=== PATIENT | female | born 1955 | race Caucasian/White ===

== ENCOUNTER → 2020-05-20 14:33 | Outpatient (CLI) | payer OTHER, SELFPAY ==
[2020-05-20 16:02] LABS: BUN Creatinine Ratio 38.8 (6-22); Blood Urea Nitrogen 26 mg/dL (7-17); Estimated Glomerular Filt Rate > 60.0 mL/min (>60)
== END ==
PROVIDERS: PCP Physician Assistant; Referring Provider Specialist; Visit Provider Specialist
DX: K57.32 Diverticulitis of large intestine without perforation or abscess without bleeding (principal); R10.32 Left lower quadrant pain
CPT/HCPCS: 36415; 82565; 84520

== ENCOUNTER → 2020-05-23 10:02 | Outpatient (CLI) | payer OTHER, SELFPAY ==
--- NOTE | 2020-05-23 11:23 | DI.CT.S_ITS ---
PROCEDURE: CT ABDOMEN PELVIS W CON INDICATIONS: Left lower quadrant pain. History of diverticulitis. TECHNIQUE: After the administration of oral and intravenous contrast, 5 mm thick sections acquired from the diaphragms to the symphysis. 5 mm thick coronal and sagittal reformats were performed. For radiation dose reduction, the following was used: automated exposure control, adjustment of mA and/or kV according to patient size. COMPARISON: [facility], CT, ABDOMEN/PELVIS WITH CONTRAST, 12/20/2010, 10:18. [facility], CT, ABDOMEN/PELVIS WITH CONTRAST, 04/19/2009, 20:33. FINDINGS: Image quality: Excellent. ABDOMEN: Lung bases: Lung bases are clear. Heart size is normal. Small pericardial effusion. There is a large hiatal hernia. Solid organs: Low-density nodules in liver are most likely hepatic cysts. Liver is normal in size and enhancement. Gallbladder is no. Biliary system is non-dilated. Pancreas enhances normally. Spleen is normal in size and enhancement. No adrenal nodules. Kidneys are normal in size and enhancement, without hydronephrosis. Peritoneum and bowel: Stomach, small bowel, and colon loops are normal in caliber and wall thickness. There are scattered colonic diverticula. There is subtle pericolonic stranding and colonic wall thickening in sigmoid colon, suspicious for mild diverticulitis. Appendix is normal. No free fluid or air. Nodes and vessels: No retroperitoneal or mesenteric adenopathy. Aorta and inferior vena cava are normal in caliber. Miscellaneous: No ventral hernias. PELVIS: Genitourinary: Myomatous uterus with large uterine fibroids measuring up to a cm. Bladder wall thickness is normal. Miscellaneous: No inguinal hernias or adenopathy. Bones: No suspicious bony lesions. No vertebral body compression fractures. IMPRESSION: 1. Diverticulosis. Mild diverticulitis may be present in the sigmoid colon. No findings to suggest diverticular perforation. No abscess. 2. Large hiatal hernia. 3. Myomatous uterus with large uterine fibroids measuring up to 8 cm. Dictated by: Keith Simmons M.D. on 05/23/2020 at 11:54 Approved by: Keith Simmons M.D. on 05/23/2020 at 12:03
== END ==
PROVIDERS: PCP Physician Assistant; Referring Provider Specialist; Visit Provider Specialist
DX: R10.32 Left lower quadrant pain (principal); K57.32 Diverticulitis of large intestine without perforation or abscess without bleeding; K44.9 Diaphragmatic hernia without obstruction or gangrene; I31.3 Pericardial effusion (noninflammatory); D25.9 Leiomyoma of uterus, unspecified
CPT/HCPCS: 74177; Q9967

== ENCOUNTER 2020-06-28 06:13 | Inpatient (IN) | payer OTHER, SELFPAY ==
[2020-06-28] VITALS (12 sets, daily range): BP systolic 84–117; BP diastolic 50–78; PULSE 74–91; RESP 12–20; TEMP 36.1–37.1; O2SAT 88–96; BMI 29.5
--- NOTE | 2020-06-28 | PATH_ITS ---
[facility] Accession Number: [id number] . 01 Material submitted: . PART A: uterus - UTERUS AND BILATERAL FALLOPIAN TUBES PART B: colon - SIGMOID COLON . 01 Clinical history: . IP . 02 Diagnosis: A. Uterus and Bilateral Fallopian Tubes, Supracervical Hysterectomy and Bilateral Salpingectomy (Weight 272 grams): Basalis endometrium with features of cystic atrophy; negative for glandular hyperplasia, cytologic atypia, or malignancy. Myometrium with an intramural leiomyoma (8.5 cm in greatest dimension); negative for cytologic atypia or malignancy. Uterine serosa with no significant histomorphologic abnormality. Braselton fallopian tube with benign paratubal cysts (1-2 mm in greatest dimension) and with adhesions to the adjacent ovary. Adjacent ovary with endosalpingiosis and with a small focus of Leydig cell hyperplasia (less than 1 mm). Longer fallopian tube with no significant histomorphologic abnormality. . B. Sigmoid Colon, Resection (7.5 cm in Length): Segment of colon with diverticulosis. Resections margins are viable and without abnormality. Negative for dysplasia or malignancy. [facility] 07/01/2020 1453 Local . 02 Electronically signed: . Nuzhat Page MD, Pathologist NPI- [id number] . 01 Gross description: . A. Received in formalin and labeled uterus and bilateral fallopian tubes and consists of a 272-gram supracervically resected uterus measuring 10.0 cm from superior fundus to lower uterine segment by 11.5 cm from cornu to cornu by 8.5 cm from anterior to posterior. The serosa is hernandez-pink and smooth. The specimen is bivalved to reveals a 3.0 x 1.5 cm endometrial cavity with a pink-red glistening hemorrhagic endometrium measuring 0.3 cm in thickness. The myometrium is hernandez-pink and trabeculated measuring 2.1 cm in thickness. There is an 8.5 x 5.8 x 5.8 cm hernandez-white leiomyoma with no areas of hemorrhage, necrosis or cystic degeneration. There are two detached fallopian tubes measuring 2.5 in length by 0.8 cm in diameter and 3.0 cm in length by 0.8 cm in diameter. The serosa is pink-purple and smooth with multiple paratubal cysts ranging from 0.1 to 0.2 cm. Sectioning reveals a hernandez-pink mucosa and a stellate lumen measuring 0.3 cm in diameter. Deputy Director sections are submitted. . A1-A2: lower uterine segment. A3-A6: food service sales representatives uterus. A7-A10: food service sales representatives leiomyoma. A11: shorter fallopian tube, central cross-sections and bisected fimbria. A12: longer fallopian tube, central cross-sections and bisected fimbria. . B. Received in formalin and labeled sigmoid colon and consists of a 7.5 cm in length by 3.0 cm in diameter unoriented portion of colon with two stapled margins. The serosa is hernandez-pink and smooth and there is a moderate amount of attached adipose tissue. Opening reveals a hernandez-pink mucosa with normal mucosal folds. Multiple intact diverticula are identified throughout the specimen, located 0.3 cm from the nearest stapled margin. The wall thickness measures up to 0.6 cm. No lymph nodes are identified within the attached adipose tissue. Deputy Director sections are submitted. . B1-B2: stapled margins (blue, black), food service sales representatives perpendicular sections. B3-B4: food service sales representatives diverticula. (EA:[id number]) /MRV 06/29/[address] [place] [address] . 02 Pathologist provided ICD-10: D25.9, R10.2, K57.92 . 02 CPT . 012393, [id number] Performed at: 01 [facility] [address] [place] [address], [place], [place] [id number] MD Ihsan Linn MD Phone: [phone] Performed at: [address] [facility] [address] [place], [place] [id number] MD Yisel Lei MD Phone: [phone]
[2020-06-28 06:56] LABS: COVID19 -Nasal RAPID Negative (Negative)
[2020-06-28] MEDS: ACETAMINOPHEN 325 MG TABLET 975 MG PO (07:19)
[2020-06-28] MEDS: GABAPENTIN 300 MG CAPSULE PO ×2 (07:20→20:57)
[2020-06-28] MEDS: SCOPOLAMINE 1 PATCH TOP (07:20)
[2020-06-28] MEDS: LACTATED RINGERS 1,000 ML 100 ML IV ×4 (07:21→21:32)
[2020-06-28] MEDS: metroNIDAZOLE 500 MG/100 ML PIGGYBACK 100 MG IV (07:26)
--- NOTE | 2020-06-28 07:35 | PM.PREOP ---
Pre-operative Note COVID-19 COVID-19 status: Negative Result date/Date tested (Pos, Neg/Pending): 06/28/20 Interval Note History & Physical reviewed/Exam performed by Physician: Yes Changes to H&P: No H&P completed within 30 days and has changed as indicated here:: 06/17/20
--- NOTE | 2020-06-28 07:37 | PM.PREOP ---
Pre-operative Note COVID-19 COVID-19 status: Negative Result date/Date tested (Pos, Neg/Pending): 06/28/20 Interval Note History & Physical reviewed/Exam performed by Physician: Yes Changes to H&P: No
[2020-06-28] MEDS: CEFTRIAXONE 1 GM/50 ML FROZ.PIGGY IV (08:20)
--- NOTE | 2020-06-28 08:45 | SUR.OPER ---
Lithotomy on padded OR bed. [place] Pad Positioner under torso. Head on gel donut, arms padded and tucked at sides. Legs secured in padded yellow fins stirrups.
--- NOTE | 2020-06-28 08:54 | PM.AN.REGBLK ---
Regional Block Pre-procedure Procedure: Continuous Epidural for Post-operative Pain Management Attending OB provider: Jamir Faye PMH/ROS narrative: Myomectomy for fibroids, sigmoid colectomy for diverticulitis. Surgeon request epidural for post-op pain control. hypothyroid hemochromatosis requiring less frequent phlebotomies (Q4mo) obesity, BMI 30 Mets>4, no recent URI, no tobacco use, EtOH 2/month, no drug use. PSH/Anesthesia history narrative: A/P repair tummy tuck gustavo h/o PONV Exam narrative: MP2, normal dentition and range of motion regular rate and rhythm of heart sounds lungs clear to auscultation bilaterally ASA Class: II Labs: COVID negative 06/28 Medications: Current Medications Generic Name Dose Route Start Last Admin Trade Name Freq PRN Reason Stop Dose Admin Acetaminophen 650 mg 06/28/20 08:44 Acetaminophen 325 Mg Tablet PO Q4HR PRN headache/mild pain Fentanyl 0 mcg 06/28/20 08:37 Fentanyl 100 Mcg/2 Ml Inj IV Q5MIN PRN Pain, Severe (7-10) Haloperidol 1 mg 06/28/20 08:37 Haloperidol 5 Mg/Ml Vial IV Q15MIN PRN Nausea Lactated Ringer's 1,000 mls @ 100 mls/hr 06/28/20 06:00 06/28/20 07:21 Lactated Ringers IV 100 mls/hr CONT OCHOA Administration Lactated Ringer's 1,000 mls @ 42 mls/hr 06/27/20 12:45 06/28/20 07:26 Lactated Ringers IV Not Given CONT OCHOA Lactated Ringer's 1,000 mls @ 120 mls/hr 06/28/20 08:45 Lactated Ringers IV CONT OCHOA Lactated Ringer's 1,000 mls @ 100 mls/hr 06/28/20 08:45 Lactated Ringers IV CONT OCHOA FENT 2MCG/ML BUPIV 0.125% EPI 200 mcg in 100 mls @ 6 mls/hr 06/28/20 08:45 Fentanyl/Bupiv/Ns 2mcg/Ml - 0.125% EPIDURAL CONT OCHOA Lorazepam 0.25 mg 06/28/20 08:37 Lorazepam 2 Mg/Ml Inj IV NOW PRN Anxiety Ondansetron HCl 4 mg 06/28/20 08:37 Ondansetron 4 Mg/2 Ml Inj IV NOW PRN Nausea And Vomiting Ondansetron HCl 4 mg 06/28/20 08:44 Ondansetron 4 Mg/2 Ml Inj IV Q6HR PRN Nausea And Vomiting Oxycodone HCl 5 mg 06/28/20 08:44 Oxycodone Ir 5 Mg Tablet PO Q4HR PRN Pain, Moderate (4-6) Allergies: Allergies Allergy/AdvReac Type Severity Reaction Status Date / Time levofloxacin [From LEVAQUIN] Allergy Severe ANXIETY Verified 06/28/20 07:08 ATTACK, FEELS LIKE I'M HAVING A HEART ATTACK Penicillins [PENICILLINS] Allergy Severe Hives Verified 06/28/20 07:08 Procedure Insertion date: 06/28/20 Insertion time: 08:03 Prep/Local: 1% lidocaine (Chloroprep prep) Interspace: T10-11 Patient position: sitting Needle: 18 gauge Hustead Loss of resistance with: saline HOMA at (cm): 4 Catheter placed at SKIN (cm): 9 Catheter in SPACE (cm): 5 Insertion: No CSF, No Blood, No Paresthesia with insertion, No Paresthesia with injection and No Test dose reaction Initial Medications TEST DOSE time: 08:02 TEST DOSE: 1.5% lidocaine with epinephrine 1:200k (mL): 5 Infusion INFUSION: 0.125% bupivacaine and with fentanyl 2 mcg/mL Initial rate (mL/hr): 6 Post-procedure Anesthesia time START: 07:49 Anesthesia time END: 08:03 Post-procedure Anesthesia Assessment: Yes CV function: HR/BP stable, Yes Resp function: RR/sat/airway adequate, Yes Nausea & vomiting absent, Yes Mental status appropriate and No Anesthesia complications
[2020-06-28] MEDS: BUPIVACAINE 0.5% (PF) VIAL 30 ML INJ (09:09)
--- NOTE | 2020-06-28 12:24 | P.OP_ITS ---
Operative Date/Time/Diagnoses Date of procedure: 06/28/20 Time of procedure: 12:24 Pre-op diagnosis: Chronic intermittent pain from diverticulitis. Post-op diagnosis: same Procedure & Clinicians Procedure: Laparoscopic sigmoid resection with primary anastomosis. Same procedure as scheduled: Yes Indications: Chronic pain from intermittent diverticulitis. Disrupting patient's life. She desired removal of the segment of her colon. Surgeon: Jamir Faye Carbide Die Maker: Frida Kohli Anesthesia Type: General Operative Notes Findings: Scarring in the proximal sigmoid. Mild thickening of the wall. Specimen(s): other (Sigmoid colon (portion of)) Applied: catheter Estimated Blood Loss (mL): 20 (For this portion of the procedure.) Blood products transfused: none Procedure in detail: This procedure was done in combination with Dr. Kohli who performed a supracervical hysterectomy. She has dictated that portion of the procedure. There may be some overlap in our dictation. Patient was placed supine on the operating room table underwent general endotracheal anesthesia. An epidural catheter had been placed prior for postoperative pain control. She was prepped and draped in the usual fashion. Curvilinear incision was made at the upper edge of her abdominoplasty incision near her umbilicus. Was carried under direct vision into the peritoneal cavity. Stay sutures of 0 Vicryl were placed in the fascia. And a son cannula was inserted. The abdomen is insufflated. Ultimately 3 additional 5 mm ports were placed. One was in the left lower abdomen at about the level of the umbilicus. One opposite on the right side. And 1 in the midline in a midline scar. This was inferior between the umbilicus and the pubis. After examining the abdomen and determining where the area of inflammation had been in the sigmoid colon we began by mobilizing the descending colon dividing the attachments of the colon to the left abdominal wall. This was taken to the level near the splenic flexure. The dissection was carried inferiorly as well until I reached the ligaments of the uterus attached to the left abdominal wall. We were not in the region of the ureter at this juncture the operation. The patient's sigmoid colon was quite lengthy. We then shifted gears and Dr. Kohli proceeded to perform a supracervical hysterectomy. This was done to relieve the visualization of the sigmoid in the pelvis which was obscured by this large fibroid. Once the uterus had been disconnected from the cervix it was placed in the right lower quadrant for evacuation later. Turning our attention back to the sigmoid colon I mobilized adequately such that it would easily come up to the abdominal wall in the region of her transverse abdominoplasty incision across her lower abdomen. I then made a transverse incision overlying the rectus carried down to the rectus which was opened in his anterior fascia. The muscle was retracted laterally and medially and the peritoneum opened posteriorly. A small Joesph was placed in the incision to protect the wound and the colon was easily brought out to include the area that appeared to have some scarring and on palpation was mildly thickened. The colon was transected proximal and well distal to this. A segment about 10-12 inches was removed. A 2 layer anastomosis then was created with seromuscular silks in the outer layer and running 3-0 Vicryl Cami type full-thickness closure as an inner layer. The anastomosis was passed painted and felt to be patent. This portion of the colon was returned back into the abdomen and a proctoscope inserted. Fluid was filled and the colon lumen closed off above the incision and air insufflated. There was no evidence of an air leak. The anastomosis appeared fine. Fluid was suctioned from the pelvis. We then attempted to retrieve the uterus which was challenging. We therefore had to regroup and closed the anterior fascia with a running 0 Vicryl. We were ultimately able to identify the uterus which had moved into the right upper quadrant under the transverse colon omentum. It was moved down into the pelvis. The suture line of 0 Vicryl that had been placed in the anterior fascia of the wound in the left lower quadrant was removed. The uterus was removed through an Dalia device to prevent any contamination of the abdominal wall. The [place] was then removed. The peritoneum was closed with a running 2-0 Vicryl suture. The wounds were i rrigated. The anterior rectus fascia was closed a running number 0 PDS suture. The skin in all areas was closed with 4-0 Vicryl suture. Interrupted Vicryl sutures were used on the 5 mm port sites.. The skin at the left lower quadrant incision was closed a running 4-0 Vicryl subcuticular stitch after placing a few 3-0 Vicryl in the subcu fat. The skin at the scar near the umbilicus had additional 6 0 nylon interrupted sutures placed to bring the skin edges nicely together. The scar that was present there made approximation of the skin edges difficult. Steri-Strips and Mastisol were used to close the other wounds. Dressings were applied and the patient was awakened extubated and taken the recovery area in good condition. Complications: none Post-operative Condition: stable Disposition: PACU Plan for aftercare: Floor care for her epidural.
[2020-06-28] MEDS: FENT 2MCG/ML BUPIV 0.125% EPI 200 MCG/100 ML PLAST..BAG 6 MCG EPIDURAL ×2 (13:53→22:55)
[2020-06-28] MEDS: LACTATED RINGERS 1,000 ML 120 ML IV (13:53)
--- NOTE | 2020-06-28 15:30 | PC.NURSE ---
Addendum entered by Cate Boothe R.N. 06/28/20 15:33: LAP BANDAGES X 4 TO ABD CDI AND TRANSVERSE UMBILICAL DRESSING ALSO CDI Original Note: RECIEVED PT TO ROOM [address] AND EFFECTIVE - DENIES PAIN AND ABLE TO WIGGLE BILAT TOES. ROOM AIR SPO2 96%, HOBBS PATENT- DAUGHTER AT BEDSIDE AND BOTH SHE AND PT ORIENTED TO ROOM - LR @ 120CC/H
--- NOTE | 2020-06-28 18:58 | PM.GYNOP.1 ---
Operative Date/Time/Diagnoses Date of procedure: 06/28/20 Time of procedure: 12:00 Pre-op diagnosis: Pelvic pain Enlarged fibroid uterus Post-op diagnosis: same Procedure & Clinicians Procedure: Procedures Operation Date: 06/28/20 07:45 Actual Procedures Side Surgeon p Laparoscopic Hysterectomy W/Bilateral Salpingectomy Frida Kohli MD p Laparoscopic Sigmoid Colectomy with primary anastomosis Jamir Faye MD Indications: Pelvic pain Fibroid uterus Surgeon: Frida Kohli Nutrition Associate: Jamir Faye Anesthesia Type: General and Epidural Operative Notes Findings: Eleven week size fibroid uterus Normal tubes and ovaries Normal liver and gallbladder Normal appendix Closure Type: primary Specimen(s): left tube, right tube and uterus Applied: catheter (To continuous drainage) Estimated blood loss (mL): 75 Blood products transfused: none Procedure in detail: This procedure was done in conjunction with Dr. Faye. The incisions and entry into the peritoneal cavity was done by Dr. Faye. After the patient was prepped and draped. A bivalve speculum was placed into the vagina. A single-tooth tenaculum was placed on the anterior lip of the cervix. The cervical os was sequentially dilated until the Zumi uterine manipulator could pass easily into the endometrial cavity. Attention was then turned to the abdomen and the incisions are dictated by Dr. Faye. The right tube was grasped with an atraumatic grasper. Using the Thunderbeat, the mesosalpinx was cauterized and cut all the way down to the cornua of the uterus. The uterus was grasped at the cornua on the right side. The round ligament was cauterized and cut. The broad ligament was cauterized and cut down to the level of the uterine arteries. The bladder flap was created using the Thunderbeat assisted across. The uterine arteries on the right side were extensively cauterized with the Thunderbeat. All of this was repeated on the patient's left side. The remainder of the bladder flap was created and the bladder was taken down off the lower uterine segment and cervix. The Zumi uterine manipulator was removed from the uterus. The Cassia loop was placed approximately 2 cm above the uterus sacral ligaments. The uterus was amputated from the cervix. There was some bleeding noted from the right side of the cervix. This was cauterized with the Thunderbeat for hemostasis. The uterus was placed into the right lower quadrant. After the completion of the partial colectomy, the uterus was brought up to the Joesph with the cervical side up. The uterus was morcellated until the diameter could fit through the Joesph. The tubes and uterus were handed off for specimen. The Joesph was removed from the peritoneal cavity. The closure of the incisions is dictated by Dr. Faye. The graduate teaching assistant during this case provided entry into the abdomen. He provided retraction of the uterus while the pedicles were being cauterized and cut. He provided retraction while the bladder flap was being created. He provided retraction while the Cassia loop was amputating the uterus from the cervix. He assisted in removal of the uterus and closure of the abdomen. Complications: none Post-operative Condition: stable Disposition: PACU Plan for aftercare: To acute care after recovery
[2020-06-28] MEDS: OXYCODONE IR 5 MG TABLET PO (20:57)
[2020-06-29 04:47] VITALS: BP 105/62; PULSE 86; RESP 18; TEMP 36.3; O2SAT 95
[2020-06-29 05:22] LABS: Add Manual Diff / Slide Review NO; Basophils Absolute Auto 0 /uL (0-100); Basophils Percent Auto 0.2 % (0-2); Eosinophils Absolute Auto 0 /uL (0-450); Hematocrit 36.4 % (36-46); Hemoglobin 12.3 g/dL (12.0-16.0); Lymphocytes Absolute Auto 800 /uL (1100-4500); Lymphocytes Percent Auto 6.5 % (25-40); Mean Corpuscular HGB Conc 33.7 % (30-36); Mean Corpuscular Hemoglobin 31.5 PG (26-34); Mean Corpuscular Volume 93.7 fL (80-100); Monocytes Absolute Auto 700 /uL (0-900); Neutrophils Absolute Auto 10500 /uL (1500-7000); Neutrophils Percent Auto 87.3 % (50-75); Platelet Count 244 X10^3/uL (150-400); Red Blood Cell Count 3.88 X10^6/uL (4.0-5.2); Red Cell Distribution Width 12.9 % (11.6-14.8)
[2020-06-29 05:27] LABS: Alanine Aminotransferase 23 IU/L (<35); Albumin 3.3 g/dL (3.5-5.0); Albumin Globulin Ratio 1.4 (1.0-2.8); Alkaline Phosphatase 49 U/L (38-126); Aspartate Aminotransferase 35 IU/L (14-36); BUN Creatinine Ratio 10.9 (6-22); Bilirubin Total 0.3 mg/dL (0.2-1.3); Blood Urea Nitrogen 6 mg/dL (7-17); Calcium 8.6 mg/dL (8.4-10.2); Carbon Dioxide 24 mmol/L (22-32); Chloride 108 mmol/L (98-107); Estimated Glomerular Filt Rate > 60.0 mL/min (>60); Globulin 2.4 g/dL (1.7-4.1); Glucose 121 mg/dL (80-110); HEMOLYSIS < 15 (0-50); Magnesium 2.1 mg/dL (1.6-2.3); Potassium 4.3 mmol/L (3.4-5.1); Sodium 138 mmol/L (137-145); Total Protein 5.7 g/dL (6.3-8.2)
[2020-06-29] MEDS: LACTATED RINGERS 1,000 ML 100 ML IV (08:00)
[2020-06-29 08:46] VITALS: BP 108/62; PULSE 66; RESP 16; TEMP 36.6; O2SAT 98
--- NOTE | 2020-06-29 09:18 | PM.PN.1 ---
Subjective Subjective Date Patient Seen: 06/29/20 Time Patient Seen: 09:19 Interval history: Patient is a 64 year-old woman POD#1 from laprascopic hysterectomy, bilateral salpingectomy and sigmoid colectomy with primary anastamosis. Epidural day #2 for post-op pain control. Patient relates excellent pain control: 0/10. She endorses some itching, but says that it is tolerable. No nausea. She has not tried getting out of bed or walking and was under the impression that she couldn't with the urinary catheter and the epidural in. Exam Vital Signs (past 8 hours): - 06/29/20 04:47 06/29/20 08:46 Temperature 97.4 F L 97.9 F Pulse Rate 86 66 Respiratory Rate 18 16 Blood Pressure 105/62 108/62 Pulse Oximetry 95 98 Oxygen Delivery Method Room Air Oxygen Flow Rate 0 Narrative Exam Narrative: Patient is alert, awake and oriented, sitting up in bed and enjoying breakfast. She has good strength with foot flexion and hip flexion. Catheter site is clean dry and intact. Epidural is running at 6mL/hr and she endorses one demand bolus last night. Objective Labs Result Diagrams: 06/29/20 04:45 06/29/20 04:45 Labs: Laboratory Results - last 24 hr 06/28/20 06/29/20 06/29/20 17:06 04:45 04:45 WBC 12.0 H RBC 3.88 L Hgb 12.3 Hct 36.4 MCV 93.7 MCH 31.5 MCHC 33.7 RDW 12.9 Plt Count 244 Neut % (Auto) 87.3 H Lymph % (Auto) 6.[address] [place] % (Auto) 6.0 Eos % (Auto) 0.0 L Baso % (Auto) 0.2 Neut # (Auto) 58678 H Lymph # (Auto) [address] [place] [place] # (Auto) 700 Eos # (Auto) 0 Baso # (Auto) 0 Sodium 138 Potassium 4.3 Chloride 108 H Carbon Dioxide 24 BUN 6 L Creatinine 0.55 Estimated GFR > 60.0 BUN/Creatinine Ratio 10.9 Glucose 121 H Calcium 8.6 Magnesium 2.1 Total Bilirubin 0.3 AST 35 ALT 23 Alkaline Phosphatase 49 Total Protein 5.7 L Albumin 3.3 L Globulin 2.4 Albumin/Globulin Ratio 1.4 Nasal Screen MRSA (PCR) Negative for mrsa [facility] Medical History (Updated 06/27/20 @ 08:10 by Wandy Shahid RN) Acquired hypothyroidism Burning mouth syndrome Cold intolerance Diverticulitis large intestine Elective surgery Hemochromatosis Hiatal hernia Postmenopausal Rheumatoid disease Uterine fibroid Vaginal bleeding Surgical History (Updated 06/20/20 @ 11:32 by Frida Kohli MD) H/O abdominoplasty History of bilateral tubal ligation History of repair of hiatal hernia History of tonsillectomy and adenoidectomy Status post wisdom tooth extraction Family History Father Hypertension Stroke Grandmother Diabetes mellitus Stroke Cancer Brother Cancer Social History marital status: household members: spouse Smoking Status: Never smoker alcohol intake: current Assessment & Plan Assessment & Plan narrative: Patient is POD#1 and epidural day #2. Plan to continue epidural until primary team plans discharge or desires removal of urinary catheter. Will then stop the infusion for six hours, ensuring adequate pain control with oral medications on which she will be at home. Catheter will be discontinued ensuring 12 hours from last lovenox injection. Encouraged ambulation: if patient feels unsteady with epidural at current infusion rate, can decrease rate to improve subjective strength. Patient tolerating PO. Continue scheduled tylenol. Encouraged keeping the scopolamine patch on until we know that she is tolerating PO pain medications or 72hours after its placement. Will add PRN diphenhydramine for itching. Silvia LO Anesthesiologist
[2020-06-29] MEDS: THYROID, PORK 60 MG TABLET PO (09:27)
[2020-06-29] MEDS: ENOXAPARIN 40 MG/0.4 ML SYRINGE SUBCUT (09:28)
[2020-06-29] MEDS: GABAPENTIN 300 MG CAPSULE PO ×2 (09:29→20:28)
--- NOTE | 2020-06-29 11:02 | PC.NURSE ---
PT WITH CONTROLLED PAIN WITH CURRENT EPIDURAL USE- LUNGS CLEAR AND NOT REQUIRING O2, ROOM AIR SPO2 98%. LR continues to infuse and iniguez is patent PT WAS INCONT MODERATE AMOUNT OF LIQUID BROWN STOOL. AWAITING PHYSICAL THERAPY TO ASSESS BUT SHE WAS ABLE TO DANGLE AND THEN FEW STEPS TO [facility] AND THEN TRANSFER WITH ASSIST TO CHAIR- TOLERATING CLEAR LIQUIDS WELL DENIES NAUSEA
[2020-06-29 12:21] VITALS: BP 116/63; PULSE 63; RESP 17; TEMP 36.4; O2SAT 100
[2020-06-29] MEDS: ACETAMINOPHEN 325 MG TABLET 650 MG PO ×2 (12:57→17:15)
[2020-06-29] MEDS: OXYCODONE IR 5 MG TABLET PO ×2 (15:21→20:28)
--- NOTE | 2020-06-29 15:38 | PC.NURSE ---
Addendum entered by Silvia Mckoy R.N. 06/29/20 19:21: Dr Faye at bedside, wants to make sure that during the 9am Lovenox shot, that pt is being educated on how to self administer this medication as she will be going home using this. Addendum entered by Silvia Mckoy R.N. 06/29/20 19:02: Dr. Kohli at bedside, discussed replacing epidural with patient for pain control, decided to add IV toradol and dilaudid for additional pain control. Galvin catheter removed due to patient ability to ambulate to the bathroom with FWW. Pt states that pain is being better controlled with the Tylenol and Toradol administered in addition to PO Percolone 5mg. Pt has had 2 loose stool so far during this shift, now able to ambulate to bathroom and has the sensation of when she needs to void and have a BM. Bed low and locked, call light within reach, daughter remains at bedside for additional assistance, will continue to monitor. Original Note: Evening shift note: During change of shift, pt sitting up in chair, this nurse was changing the epidural bag and was going to disconnect the line from patient to prime line and noted that the epidural dressing and line was no longer intact in patients back(although the catheter tip was intact). At this time I had the dayshift nurse Cate Ferreira confirm that the epidural was displaced, and waste the new bag of Fent/Bupiv/Epi with me. Dr. Rivas anesthesiology was notified and stated that it was OK to leave the epidural out, however if the patient wanted it replaced this nurse would need to contact the anesthesiologist classification case manager. Administered PO pain medication per emar, will continue to monitor.
--- NOTE | 2020-06-29 15:45 | CM.DANOTE ---
DCP Note: Patient is 64 Female with [employer]. Patient admitted in hospital post op laprascoptic hysterectomy, bilateral salpingectomy and sigmoid colectomy. Per RN, patient's epidural dislodged and RN is to inform MD. Patient's pain management is being monitored. CATERINA met with patient and daughter at bedside. Patient presents as A/Ox4. Patient reports that she has three daughters and a , patient reports that her three daughters are taking turns attending to her care giving needs. Patient states that her epidural came out and that she just received pain medication, patient reports no current pain. Patient reports that she drives but plans not to drive for a while post op. Plan: follow for patient d/c needs. CATERINA Truong Discharge Planning/Care Management CM Discharge Assessment Start: 06/29/20 15:44 Freq: Status: Active Protocol: Document 06/29/20 15:44 LN (Rec: 06/29/20 15:45 LN [id number]) Discharge Planning Assessment Assigned Electrical Equipment Assembler CATERINA Grubbs Advance Directives? No History Provided By Patient,Family Member,Medical Record Has Patient been admitted in last 30 No days? Prior Living Arrangements House Household Members spouse Type of transporation used prior to Drives own vehicle admit Comment patient plans to not drive upon d/c until fully recovered post op. Discharge Plan Home Please Provide Date Initial DC 06/29/20 Assessment Was Performed Pre-Anesthesia Assessment Start: 06/27/20 07:55 Freq: Status: Complete Protocol: Document 06/27/20 07:56 ELOY (Rec: 06/27/20 08:11 Natacha [id number]) Pre-Anesthesia Assessment Patient Information Reviewed Via Chart Review Seen Specialist in Last 12 Months Yes Specialist Seen General surgeon,Oncologist Height 160.02 cm Anesthesia Review Requested No Technical Operations Specialist No alcohol intake current Smoking Status Never smoker Marital Status Lives With spouse
[2020-06-29 16:35] VITALS: BP 121/73; PULSE 58; RESP 16; TEMP 36.4; O2SAT 99
[2020-06-29] MEDS: KETOROLAC 30 MG/ML VIAL IV (18:01)
--- NOTE | 2020-06-29 18:05 | PM.PNPO.1 ---
Subjective Subjective Date Patient Seen: 06/29/20 Time Patient Seen: 18:05 Interval history: Patient is a 64-year-old postop day # 1 status post laparoscopic supracervical hysterectomy and laparoscopic partial right colectomy. Patient had an epidural for pain management until recently when the catheter came out. She has had liquid bowel movements. She sometimes does not have the urge but just leaks stool. Patient is advanced to a full liquid diet. She has been out of the bed to a chair. Exam Vital Signs (past 8 hours): - 06/29/20 12:21 06/29/20 16:35 Temperature 97.5 F L 97.6 F Pulse Rate 63 58 L Respiratory Rate 17 16 Blood Pressure 116/63 121/73 Pulse Oximetry 100 99 Oxygen Delivery Method Room Air Oxygen Flow Rate 0 Narrative Exam Narrative: Generally: Patient is sitting up in bed, no acute distress Lungs: Clear to auscultation bilaterally Cardiovascular: Regular rate and rhythm Abdomen: Soft, good bowel sounds in all 4 quadrants. Incisions: Clean dry and intact with bandages Extremities: SCDs in place Objective Labs Result Diagrams: 06/29/20 04:45 06/29/20 04:45 Labs: Laboratory Results - last 24 hr 06/28/20 06/29/20 06/29/20 17:06 04:45 04:45 WBC 12.0 H RBC 3.88 L Hgb 12.3 Hct 36.4 MCV 93.7 MCH 31.5 MCHC 33.7 RDW 12.9 Plt Count 244 Neut % (Auto) 87.3 H Lymph % (Auto) 6.5 L [place] % (Auto) 6.0 Eos % (Auto) 0.0 L Baso % (Auto) 0.2 Neut # (Auto) 51447 H Lymph # (Auto) 800 L [place] # (Auto) 700 Eos # (Auto) 0 Baso # (Auto) 0 Sodium 138 Potassium 4.3 Chloride 108 H Carbon Dioxide 24 BUN 6 L Creatinine 0.55 Estimated GFR > 60.0 BUN/Creatinine Ratio 10.9 Glucose 121 H Calcium 8.6 Magnesium 2.1 Total Bilirubin 0.3 AST 35 ALT 23 Alkaline Phosphatase 49 Total Protein 5.7 L Albumin 3.3 L Globulin 2.4 Albumin/Globulin Ratio 1.4 Nasal Screen MRSA (PCR) Negative for mrsa [facility] Medical History (Updated 06/27/20 @ 08:10 by Wandy Shahid RN) Acquired hypothyroidism Burning mouth syndrome Cold intolerance Diverticulitis large intestine Elective surgery Hemochromatosis Hiatal hernia Postmenopausal Rheumatoid disease Uterine fibroid Vaginal bleeding Surgical History (Updated 06/20/20 @ 11:32 by Frida Kohli MD) H/O abdominoplasty History of bilateral tubal ligation History of repair of hiatal hernia History of tonsillectomy and adenoidectomy Status post wisdom tooth extraction Family History Father Hypertension Stroke Grandmother Diabetes mellitus Stroke Cancer Brother Cancer Social History marital status: household members: spouse Smoking Status: Never smoker alcohol intake: current Assessment & Plan Post-op Postoperative Procedures: Procedures Operation Date: 06/28/20 07:45 Actual Procedures Side Surgeon p Laparoscopic Hysterectomy W/Bilateral Salpingectomy Frida Kohli MD p Laparoscopic Sigmoid Colectomy with primary anastomosis Jamir Faye MD Postoperative day: 1 Postoperative status: doing well and marginal pain control Postoperative plan: see orders and advance diet Postoperative plan narrative: IV Toradol, IV Dilaudid Time Spent With Patient Time with patient: 15-24 minutes
--- NOTE | 2020-06-29 19:15 | PM.PNPO.1 ---
Subjective Subjective Date Patient Seen: 06/29/20 Time Patient Seen: 19:15 Interval history: Patient feels well. Epidural came out. Pain controlled with iv and po meds. Tolerating a full liquid diet. Has had multiple bowel movements and is passing flatus. Galvin just came out. Exam Vital Signs (past 8 hours): - 06/29/20 12:21 06/29/20 16:35 Temperature 97.5 F L 97.6 F Pulse Rate 63 58 L Respiratory Rate 17 16 Blood Pressure 116/63 121/73 Pulse Oximetry 100 99 Oxygen Delivery Method Room Air Oxygen Flow Rate 0 Narrative Exam Narrative: Lungs clear. Excellent effort. Heart RRR w/o M or G. Abdomen soft. Hyperactive bowel sounds. Dressings dry and intact. Objective Labs Result Diagrams: 06/29/20 04:45 06/29/20 04:45 Labs: Laboratory Results - last 24 hr 06/28/20 06/29/20 06/29/20 17:06 04:45 04:45 WBC 12.0 H RBC 3.88 L Hgb 12.3 Hct 36.4 MCV 93.7 MCH 31.5 MCHC 33.7 RDW 12.9 Plt Count 244 Neut % (Auto) 87.3 H Lymph % (Auto) 6.5 L [place] % (Auto) 6.0 Eos % (Auto) 0.0 L Baso % (Auto) 0.2 Neut # (Auto) 61547 H Lymph # (Auto) 800 L [place] # (Auto) 700 Eos # (Auto) 0 Baso # (Auto) 0 Sodium 138 Potassium 4.3 Chloride 108 H Carbon Dioxide 24 BUN 6 L Creatinine 0.55 Estimated GFR > 60.0 BUN/Creatinine Ratio 10.9 Glucose 121 H Calcium 8.6 Magnesium 2.1 Total Bilirubin 0.3 AST 35 ALT 23 Alkaline Phosphatase 49 Total Protein 5.7 L Albumin 3.3 L Globulin 2.4 Albumin/Globulin Ratio 1.4 Nasal Screen MRSA (PCR) Negative for mrsa [facility] Medical History Acquired hypothyroidism Burning mouth syndrome Cold intolerance Diverticulitis large intestine Elective surgery Hemochromatosis Hiatal hernia Postmenopausal Rheumatoid disease Uterine fibroid Vaginal bleeding Surgical History H/O abdominoplasty History of bilateral tubal ligation History of repair of hiatal hernia History of tonsillectomy and adenoidectomy Status post wisdom tooth extraction Family History Father Hypertension Stroke Grandmother Diabetes mellitus Stroke Cancer Brother Cancer Social History marital status: household members: spouse Smoking Status: Never smoker alcohol intake: current Assessment & Plan Post-op Postoperative Procedures: Procedures Operation Date: 06/28/20 07:45 Actual Procedures Side Surgeon p Laparoscopic Hysterectomy W/Bilateral Salpingectomy Frida Kohli MD p Laparoscopic Sigmoid Colectomy with primary anastomosis Jamir Faye MD Postoperative day: 1 Postoperative status narrative: doing remarkably well . Postoperative plan narrative: advance diet to full liquids. check wounds in am. Encouraged to ambulate. Continue DVT prophylaxis.
[2020-06-29 20:10] VITALS: BP 132/75; PULSE 63; RESP 16; TEMP 36.3; O2SAT 97
[2020-06-29] MEDS: diphenhydrAMINE 25 MG TABLET PO (20:28)
[2020-06-30 00:44] VITALS: BP 107/58; PULSE 65; RESP 16; TEMP 36.2; O2SAT 96
[2020-06-30] MEDS: ACETAMINOPHEN 325 MG TABLET 650 MG PO ×5 (00:45→23:57)
[2020-06-30] MEDS: KETOROLAC 30 MG/ML VIAL IV ×2 (00:45→06:17)
[2020-06-30 06:07] VITALS: BP 122/63; PULSE 66; RESP 17; TEMP 35.9; O2SAT 95
[2020-06-30] MEDS: THYROID, PORK 60 MG TABLET PO (07:58)
[2020-06-30 08:00] VITALS: BP 125/73; PULSE 56; RESP 15; TEMP 36.2; O2SAT 97
--- NOTE | 2020-06-30 11:33 | DIET.PN ---
Dietary Progress Note Assessment: 64y F recovering from planned abdominal surgery followed by [facility] fernandezop for ERAS protocol. Pt had 12in sigmoid colon resected along with uterus for uterine fibroids. Pt is gluten free, weight stable, and had no food issues prior to planned procedure besides frequent diverticular flares. Pt doing well, passing BMs, ambulating in halls, no N/V. Pt has been receiving ONS to support surgical site healing bid since assigned clear diet post-surgery. HT: 160cm WT: 75.7kg BMI: 29.6 Labs: WBC 12 H Nutrition Diagnosis: altered GI function r/t sigmoid colon resection aeb pt underwent planned resection for recurrent diverticulitis c 12 colon removed, pt requiring altered diet for 1-4w to support healing. Interventions: 1. Provided handout and instruction on low fiber diet x1-2w to support healing of intestines. Pt alerted BM may be more constipating because of low fiber diet and possible d/c pain meds. Encouraged adequate fluid and soft protein intake c frequent gentle walking. 2. Provided handout and instruction on high fiber diet to start increasing fiber after a week or two depending on how healing is going and abd sx. Educated pt on importance of high fiber diet to tone remaining healthy intestinal tissues. Pts questions answered. Diet Order: full liquid --> low fiber --> high fiber Monitoring/Evaluations: available to answer pt questions as needed
[2020-06-30 12:00] VITALS: BP 122/72; PULSE 56; RESP 17; TEMP 36.2; O2SAT 99
[2020-06-30] MEDS: ENOXAPARIN 40 MG/0.4 ML SYRINGE SUBCUT (12:07)
[2020-06-30] MEDS: GABAPENTIN 300 MG CAPSULE PO ×2 (12:57→20:19)
[2020-06-30] MEDS: OXYCODONE IR 5 MG TABLET PO (12:58)
[2020-06-30] MEDS: LACTOBACILLUS ACIDOPHILUS TABLET 1 EACH PO (14:54)
[2020-06-30 16:01] VITALS: BP 133/79; PULSE 57; RESP 16; TEMP 36; O2SAT 99
--- NOTE | 2020-06-30 17:21 | PM.PNPO.1 ---
Subjective Subjective Date Patient Seen: 06/30/20 Time Patient Seen: 09:40 Interval history: Patient feeling well today. Pain controlled. Continues to pass gas. Ate all of her full liquid breakfast. No real complaints. Shower earlier. Exam Vital Signs (past 8 hours): - 06/30/20 12:00 06/30/20 16:01 Temperature 97.1 F L 96.8 F L Pulse Rate 56 L 57 L Respiratory Rate 17 16 Blood Pressure 122/72 133/79 Pulse Oximetry 99 99 Oxygen Delivery Method Room Air Oxygen Flow Rate 0 Narrative Exam Narrative: Good respiratory effort. Her wounds look fine. No cellulitis. Mild abdominal distention. Objective Labs Result Diagrams: 06/29/20 04:45 06/29/20 04:45 [facility] Medical History Acquired hypothyroidism Burning mouth syndrome Cold intolerance Diverticulitis large intestine Elective surgery Hemochromatosis Hiatal hernia Postmenopausal Rheumatoid disease Uterine fibroid Vaginal bleeding Surgical History H/O abdominoplasty History of bilateral tubal ligation History of repair of hiatal hernia History of tonsillectomy and adenoidectomy Status post wisdom tooth extraction Family History Father Hypertension Stroke Grandmother Diabetes mellitus Stroke Cancer Brother Cancer Social History marital status: household members: spouse Smoking Status: Never smoker alcohol intake: current Assessment & Plan Post-op Postoperative Procedures: Procedures Operation Date: 06/28/20 07:45 Actual Procedures Side Surgeon p Laparoscopic Hysterectomy W/Bilateral Salpingectomy Frida Kohli MD p Laparoscopic Sigmoid Colectomy with primary anastomosis Jamir Faye MD Postoperative day: 2 Postoperative status: doing well Postoperative plan narrative: Mobilize further. Advance diet. Possible discharge tomorrow depending on how she is doing.
--- NOTE | 2020-06-30 17:35 | P.PN_ITS ---
Subjective Subjective Date Patient Seen: 06/30/20 Time Patient Seen: 17:35 Interval history: Patient is a 64-year-old postop day # 2 status post laparoscopic supracervical hysterectomy and laparoscopic partial right colectomy. Her pain is well controlled. Her Galvin catheter is out and she is voiding spontaneously. She is tolerating a soft diet. No nausea or vomiting. She is ambulating independently. Exam Vital Signs (past 8 hours): - 06/30/20 12:00 06/30/20 16:01 Temperature 97.1 F L 96.8 F L Pulse Rate 56 L 57 L Respiratory Rate 17 16 Blood Pressure 122/72 133/79 Pulse Oximetry 99 99 Oxygen Delivery Method Room Air Oxygen Flow Rate 0 Narrative Exam Narrative: Generally: Patient is sitting up in chair, no acute distress Lungs: Clear to auscultation bilaterally Cardiovascular: Regular rate and rhythm Abdomen: Soft, good bowel sounds. Incisions: Clean dry and intact with bandages Extremities: Negative Homans Objective Labs Result Diagrams: 06/29/20 04:45 06/29/20 04:45 [facility] Medical History Acquired hypothyroidism Burning mouth syndrome Cold intolerance Diverticulitis large intestine Elective surgery Hemochromatosis Hiatal hernia Postmenopausal Rheumatoid disease Uterine fibroid Vaginal bleeding Surgical History H/O abdominoplasty History of bilateral tubal ligation History of repair of hiatal hernia History of tonsillectomy and adenoidectomy Status post wisdom tooth extraction Family History Father Hypertension Stroke Grandmother Diabetes mellitus Stroke Cancer Brother Cancer Social History marital status: household members: spouse Smoking Status: Never smoker alcohol intake: current Assessment & Plan Post-op Postoperative Procedures: Procedures Operation Date: 06/28/20 07:45 Actual Procedures Side Surgeon p Laparoscopic Hysterectomy W/Bilateral Salpingectomy Frida Kohli MD p Laparoscopic Sigmoid Colectomy with primary anastomosis Jamir Faye MD Postoperative day: 2 Postoperative status: doing well Postoperative plan: routine post-op care and advance diet Postoperative plan narrative: Anticipate discharge 07/01 or 4/10 Advanced diet per General surgery Time Spent With Patient Time with patient: 15-24 minutes
[2020-06-30 19:57] VITALS: BP 109/70; PULSE 66; RESP 17; TEMP 36.9; O2SAT 98
[2020-07-01 00:20] VITALS: BP 110/62; PULSE 60; RESP 16; TEMP 36.3; O2SAT 97
[2020-07-01 04:51] VITALS: BP 112/64; PULSE 56; RESP 18; TEMP 36.2; O2SAT 97
[2020-07-01 04:57] LABS: Add Manual Diff / Slide Review NO; Basophils Absolute Auto 100 /uL (0-100); Basophils Percent Auto 0.8 % (0-2); Eosinophils Absolute Auto 400 /uL (0-450); Hematocrit 35.5 % (36-46); Hemoglobin 12.2 g/dL (12.0-16.0); Lymphocytes Absolute Auto 2500 /uL (1100-4500); Lymphocytes Percent Auto 32.4 % (25-40); Mean Corpuscular HGB Conc 34.2 % (30-36); Mean Corpuscular Hemoglobin 31.7 PG (26-34); Mean Corpuscular Volume 92.7 fL (80-100); Monocytes Absolute Auto 600 /uL (0-900); Monocytes Percent Auto 7.3 % (3-14); Neutrophils Absolute Auto 4200 /uL (1500-7000); Neutrophils Percent Auto 54.5 % (50-75); Platelet Count 240 X10^3/uL (150-400); Red Blood Cell Count 3.83 X10^6/uL (4.0-5.2); Red Cell Distribution Width 12.9 % (11.6-14.8); White Blood Cell Count 7.8 X10^3/uL (4.5-11.0)
[2020-07-01 05:04] LABS: Alanine Aminotransferase 33 IU/L (<35); Albumin 3.1 g/dL (3.5-5.0); Albumin Globulin Ratio 1.3 (1.0-2.8); Alkaline Phosphatase 59 U/L (38-126); Aspartate Aminotransferase 57 IU/L (14-36); BUN Creatinine Ratio 17.2 (6-22); Bilirubin Total 0.2 mg/dL (0.2-1.3); Blood Urea Nitrogen 11 mg/dL (7-17); Calcium 8.4 mg/dL (8.4-10.2); Carbon Dioxide 28 mmol/L (22-32); Chloride 108 mmol/L (98-107); Estimated Glomerular Filt Rate > 60.0 mL/min (>60); Globulin 2.3 g/dL (1.7-4.1); Glucose 80 mg/dL (80-110); HEMOLYSIS < 15 (0-50); Magnesium 1.9 mg/dL (1.6-2.3); Potassium 3.8 mmol/L (3.4-5.1); Sodium 138 mmol/L (137-145); Total Protein 5.4 g/dL (6.3-8.2)
[2020-07-01] MEDS: OXYCODONE IR 5 MG TABLET PO ×2 (05:32→10:15)
[2020-07-01] MEDS: ACETAMINOPHEN 325 MG TABLET 650 MG PO ×2 (05:32→11:51)
[2020-07-01] MEDS: THYROID, PORK 60 MG TABLET PO (05:33)
[2020-07-01 08:00] VITALS: BP 122/72; PULSE 55; RESP 16; TEMP 36.2; O2SAT 97
[2020-07-01] MEDS: GABAPENTIN 300 MG CAPSULE PO (09:09)
[2020-07-01] MEDS: ENOXAPARIN 40 MG/0.4 ML SYRINGE SUBCUT (09:10)
[2020-07-01] MEDS: LACTOBACILLUS ACIDOPHILUS TABLET 1 EACH PO (09:12)
--- NOTE | 2020-07-01 10:17 | PC.NURSE ---
Addendum entered by Jinny Alexander R.N. 07/01/20 13:00: Scheduled f/u appointment with Sx, Dr. Faye out of office next week, appointment scheduled with Dr. Wright, spoke with patient, patient verbalized understanding. Addendum entered by Jinny Alexander R.N. 07/01/20 12:48: Patient given discharge instructions regarding f/u appointments, medications, pain control, s/s of infection. Daughter bedside and both verbalized understanding. No IV access. Medication retrieved from pharmacy, patient discharged via wheelchair accompanied by aide Original Note: Patient A/O x 4, resting in bed. Abdomen soft, steri-strips intact, moderate bruising noted around umbilicus. Patient reports pain 4/10. Voiding in restroom, reports liquid stool, passing flatus. Walking in the halls with daughter, tolerating diet no complaints of N/V. Patient on RA, 97-99%, denies SOB. Patient HR high 50's, patient denies dizziness or lightheadedness. Patient refusing SCD's tolerating Lovenox. . Call light in reach.
[2020-07-01 12:00] VITALS: BP 130/71; PULSE 67; RESP 17; TEMP 36.6; O2SAT 98
--- NOTE | 2020-07-01 12:14 | PM.DS.1 ---
History of Present Illness History of Present Illness Date Patient Seen: 07/01/20 Time Patient Seen: 12:14 Chief complaint: IP Narrative: Patient is a 64-year-old postop day # 3 status post laparoscopic right partial colectomy and supracervical hysterectomy/bilateral salpingectomy. Patient is tolerating a diet. She is passing flatus and having liquid stool. No nausea or vomiting. No incisional issues. She is voiding without the catheter. She has ambulated without assistance. Discharge Providers Provider Date of admission: 06/28/20 06:13 Discharge Date: 07/01/20 Primary care physician: Shyanne De Leon PA-C Consults: 06/28/20 13:09 Consult to Discharge Planning Routine Comment: Discharge provider: Frida Kohli MD Summary Hospital Course Discharge Diagnosis: Diverticulitis Pelvic pain Fibroid uterus Status post laparoscopic partial right colectomy and supracervical hysterectomy with bilateral salpingectomy Hospital Course: Patient is a 64-year-old who presented on June 28, 2020 for a scheduled laparoscopic right partial colectomy and supracervical hysterectomy with bilateral salpingectomy. She underwent these procedures without complication. She had an epidural placed for pain management. On postop day # 1, the epidural catheter came out, she was switched to oral pain medication. Her Galvin catheter was removed on postop day # 1 and she has been able to void spontaneously. She was advanced to full liquids later in the day on postop day # 1. On postop day # 2 she was advanced to a soft diet. She has had liquid stool. She is passing flatus. She is discharged home on postop day # 3. Status at Discharge Cognitive/behavioral status at discharge: oriented Functional status at discharge: independent ambulation Overall status at discharge: patient is progressing back to baseline Time Spent with Patient Time spent: Less than 30 minutes Exam Vital Signs (past 8 hours): - 07/01/20 04:51 07/01/20 08:00 Temperature 97.1 F L 97.1 F L Pulse Rate 56 L 55 L Respiratory Rate 18 16 Blood Pressure 112/64 122/72 Pulse Oximetry 97 97 Oxygen Delivery Method Room Air Oxygen Flow Rate 0 Narrative Exam Narrative: Generally: Patient is sitting up in bed, no acute distress Lungs: Clear to auscultation bilaterally Cardiovascular: Regular rate and rhythm Abdomen: Soft and flat. Good bowel sounds in all 4 quadrants. Incisions: Clean dry and intact with Steri-Strips Extremities: Negative Homans Objective Labs Result Diagrams: 07/01/20 04:32 07/01/20 04:32 Labs: Laboratory Results - last 24 hr 07/01/20 07/01/20 04:32 04:32 WBC 7.8 RBC 3.83 L Hgb 12.2 Hct 35.5 L MCV 92.7 MCH 31.7 MCHC 34.2 RDW 12.9 Plt Count 240 Neut % (Auto) 54.5 D Lymph % (Auto) 32.4 D [place] % (Auto) 7.3 Eos % (Auto) 5.0 H Baso % (Auto) 0.8 Neut # (Auto) 4200 Lymph # (Auto) 2500 [place] # (Auto) 600 Eos # (Auto) 400 Baso # (Auto) 100 Sodium 138 Potassium 3.8 Chloride 108 H Carbon Dioxide 28 BUN 11 Creatinine 0.64 Estimated GFR > 60.0 BUN/Creatinine Ratio 17.2 Glucose 80 Calcium 8.4 Magnesium 1.9 Total Bilirubin 0.2 AST 57 H ALT 33 Alkaline Phosphatase 59 Total Protein 5.4 L Albumin 3.1 L Globulin 2.3 Albumin/Globulin Ratio 1.3 PFSH Medical History Acquired hypothyroidism Burning mouth syndrome Cold intolerance Diverticulitis large intestine Elective surgery Hemochromatosis Hiatal hernia Postmenopausal Rheumatoid disease Uterine fibroid Vaginal bleeding Surgical History H/O abdominoplasty History of bilateral tubal ligation History of repair of hiatal hernia History of tonsillectomy and adenoidectomy Status post wisdom tooth extraction Family History Father Hypertension Stroke Grandmother Diabetes mellitus Stroke Cancer Brother Cancer Social History marital status: household members: spouse Smoking Status: Never smoker alcohol intake: current Discharge Assessment & Plan Assessment and Plan Assessment: Postop day # 3 status post laparoscopic partial right colectomy, laparoscopic supracervical hysterectomy and bilateral salpingectomy Patient doing very well Plan of Treatment: Discharge to home Follow-up next for suture removal with Dr. Faye Follow-up in [address] Kohli Discharge medications include oxycodone, ondansetron, and Lovenox Patient to call with fever, chills, redness or drainage around the incisions, bleeding vaginally more than spotting to light, worsening abdominal pain, or nausea and vomiting. Discharge Plan Discharge Plan Patient Disposition: Home Provider Discharge Comment: Ibuprofen 600 mg every 6 hours Tylenol 650 mg every 6 hours Call with fever, chills, redness or drainage around the incisions, bleeding vaginally more than spotting to light, worsening abdominal pain, nausea or vomiting. Discharge orders & Medications Prescriptions: New enoxaparin [Lovenox] 40 mg/0.4 mL syringe 40 mg SUBCUT DAILY Qty: 4 RF: 0 oxycodone 5 mg tablet 5 mg PO Q4H PRN (Reason: pain) Qty: 30 RF: 0 ondansetron 4 mg tablet,disintegrating 4 mg PO Q6H PRN (Reason: nausea and vomiting) Qty: 20 RF: 0 Continued Nature-Throid 97.5 MG tablet 97.5 mg QDAY Qty: 0 RF: 0 oxycodone 5 mg tablet 5 mg PO Q4H PRN (Reason: pain) Qty: 10 RF: 0 ondansetron 4 mg tablet,disintegrating 4 mg PO Q8H PRN (Reason: nausea and vomiting) Qty: 10 RF: 0 alprazolam 0.5 mg Tablet 0.5 mg PO TID PRN (Reason: Anxiety) RF: 0 Discontinued erythromycin 500 mg tablet See Rx Instructions PO TID Qty: 6 RF: 0 neomycin 500 mg tablet 1 g PO TID Qty: 12 RF: 0 Cbd Oil 1 dose topical PRN PRN (Reason: Pain (Scale Score 1-3)) RF: 0 Follow up/Referrals: Shyanne De Leon PA-C [Primary Care Provider] - Frida Kohli MD [Physician] - 2 Weeks Jamir Faye MD [Physician] - 1 Week (Stitch removal) Diet/Activity/Treatments Diet: Regular Activity: No heavy lifting Skin/Wound/Dressing Care Report to your healthcare provider any signs of infection, such as:: chills, fever, increased pain, unusual drainage and unusual redness Dressing: Leave Steri-Strips in place until they fall off Visit Report/Discharge Packet Instructions: DI for Colectomy, DI for Laparoscopy, Hysterectomy -- Laparoscopic Surgery, DI for Prescription Opioid Use, [facility]: Wound Care Stand Alone Forms: Surgery Discharge Discharge Data Primary Care Provider: Shyanne De Leon
--- NOTE | 2020-07-01 15:17 | CM.DPNOTE ---
DC Note Home today, according to RN no needs from this [employer]NA[employer]. Home w/close outpatient f/u recommended. JW
== END 2020-07-01 13:04 | disposition home or self-care (01) | DRG 742 ==
LOC: AC 07:46 → ICU 10:00
PROVIDERS: Specialist; Admitting Provider Obstetrics & Gynecology; PCP Physician Assistant; Referring Provider Physician Assistant; Visit Provider Obstetrics & Gynecology
PROC: 0WJJ0ZZ Inspection of Pelvic Cavity, Open Approach (ICD-10-PCS; CPT 49000; principal; 2020-06-28 07:45)
PROC: 0DTE0ZZ Resection of Large Intestine, Open Approach (ICD-10-PCS; 2020-06-28 07:45)
DX: D25.9 Leiomyoma of uterus, unspecified (principal); K57.32 Diverticulitis of large intestine without perforation or abscess without bleeding; E03.9 Hypothyroidism, unspecified; E66.9 Obesity, unspecified; Z68.30 Body mass index [BMI] 30.0-30.9, adult; Z20.822 Contact with and (suspected) exposure to COVID-19
CPT/HCPCS: 36415; 36592; 80053; 82962; 83735; 85025; 87635; 87797; C9803; J0330; J1100; J1650; J1885; J2250; J2405; J2704

== ENCOUNTER 2021-04-29 17:22 | Emergency (ER) | payer OTHER, SELFPAY ==
[2020-06-28 13:28] VITALS: BMI 29.5
[2021-04-29 17:33] VITALS: BP 161/105; PULSE 95; RESP 18; TEMP 36.6; O2SAT 96; BMI 29.2
[2021-04-29 17:54] LABS: COVID19 -Nasal RAPID Negative (Negative)
[2021-04-29 17:57] LABS: Add Manual Diff / Slide Review NO; Basophils Absolute Auto 100 /uL (0-100); Basophils Percent Auto 0.9 % (0-2); Eosinophils Absolute Auto 200 /uL (0-450); Eosinophils Percent Auto 2.3 % (2-4); Hematocrit 38.4 % (36-46); Hemoglobin 12.8 g/dL (12.0-16.0); Lymphocytes Absolute Auto 2100 /uL (1100-4500); Lymphocytes Percent Auto 29.9 % (25-40); Mean Corpuscular HGB Conc 33.4 % (30-36); Mean Corpuscular Hemoglobin 29.7 PG (26-34); Mean Corpuscular Volume 88.9 fL (80-100); Monocytes Absolute Auto 600 /uL (0-900); Monocytes Percent Auto 8.1 % (3-14); Neutrophils Absolute Auto 4100 /uL (1500-7000); Neutrophils Percent Auto 58.8 % (50-75); Platelet Count 382 X10^3/uL (150-400); Red Blood Cell Count 4.32 X10^6/uL (4.0-5.2); White Blood Cell Count 6.9 X10^3/uL (4.5-11.0)
--- NOTE | 2021-04-29 18:02 | ED_ITS ---
HPI - Nausea/Vomiting/Diarrhea <Raffaele Woodward PA-C - Last Filed: 04/29/21 19:21> General Chief complaint: Nausea/Vomiting/Diarrhea Stated complaint: vomiting/chills body aches Time Seen by Provider: 04/29/21 17:26 Source: patient and family Mode of arrival: Ambulatory History of Present Illness HPI Narrative: Patient is a 65-year-old female presenting to the emergency department today for vomiting. Patient states that she began to experience dizziness, shaking, and generalized fatigue on 04/25/2021. She states that the next day she developed a fever and nonbloody diarrhea with associated bilateral lower abdominal pain. She states that she felt that her symptoms are improving, however she states that she began to experience episodes nonbloody nonbilious emesis today. Of note, patient states she does have history of diverticulitis for which she has had surgery dating back to May of 2020. She denies fever, chest pain, cough, shortness of breath, constipation, dysuria, hematuria, hematochezia, h ematemesis, or any other concerning symptoms. No further concerns were voiced at this time. Related Data Home Medications Medication Instructions Recorded Confirmed thyroid (pork) 97.5 mg tablet 97.5 mg QDAY #0 04/04/17 11/01/20 (Nature-Throid) alprazolam 0.5 mg tablet 0.5 mg PO TID PRN 03/10/19 11/01/20 estradiol valerate 11/01/20 progesterone 50 mg/mL 50 mg IM DAILY 11/01/20 11/01/20 intramuscular oil testosterone 1 packet TRANSDERMAL QAM 11/01/20 11/01/20 Previous Rx's Medication Instructions Recorded metoclopramide HCl 10 mg tablet 10 mg PO Q6H PRN #30 tab 04/29/21 (Reglan) ondansetron 4 mg disintegrating 4 mg PO Q6H PRN #30 tab 04/29/21 tablet Allergies Allergy/AdvReac Type Severity Reaction Status Date / Time levofloxacin [From LEVAQUIN] Allergy Severe ANXIETY Verified 04/29/21 17:38 ATTACK, FEELS LIKE I'M HAVING A HEART ATTACK Penicillins [PENICILLINS] Allergy Severe Hives Verified 04/29/21 17:38 Review of Systems <Raffaele Woodward PA-C - Last Filed: 04/29/21 19:21> Constitutional Constitutional: Denies chills, Reports fatigue, Reports fever(s), Denies frequent falls, Denies lethargy and Denies weakness Eyes Eyes: Denies loss of vision ENT Ears, Nose, Mouth, and Throat: Reports dizziness and Denies neck pain Cardiovascular Cardiovascular: Denies chest pain, Denies irregular heart rhythm, Denies lightheadedness, Denies palpitations, Denies dyspnea, Denies dyspnea on exertion and Denies orthopnea Respiratory Respiratory: Denies cough, Denies dyspnea, Denies dyspnea on exertion and Denies wheezing Gastrointestinal Gastrointestinal: Reports abdominal pain, Denies change in bowel habits, Reports diarrhea, Reports nausea and Reports vomiting Genitourinary Genitourinary: Denies hematuria, Denies flank pain, Denies urinary incontinence and Denies urinary urgency Musculoskeletal Musculoskeletal: Denies back pain, Denies muscle weakness, Denies neck pain, Denies numbness and Denies tingling Integumentary/Breasts Skin/Breast: Denies pruritus, Denies erythema, Denies rash and Denies wounds Neurologic Neurologic: Denies behavioral changes, Denies confusion, Reports dizziness, Denies frequent falls, Denies loss of vision, Denies numbness, Denies tingling and Denies weakness Psychiatric Psychiatric: Denies behavioral changes and Denies confusion Endocrine Endocrine: Reports fatigue and Denies palpitations Allergic/Immunologic Allergic/Immunologic: Denies wheezing Patient History <Raffaele Woodward PA-C - Last Filed: 04/29/21 19:21> Medical History Acquired hypothyroidism Burning mouth syndrome Cold intolerance Diverticulitis large intestine Elective surgery Hemochromatosis Hiatal hernia Postmenopausal Rheumatoid disease Uterine fibroid Vaginal bleeding Surgical History H/O abdominoplasty History of bilateral tubal ligation History of repair of hiatal hernia History of tonsillectomy and adenoidectomy Status post wisdom tooth extraction Family History Father Hypertension Stroke Grandmother Diabetes mellitus Stroke Cancer Brother Cancer Social History marital status: household members: spouse Smoking Status: Never smoker alcohol intake: current Smoking Status: Never smoker alcohol intake frequency: a few times a week Substance Use Type: does not use and other Exam <Raffaele Woodward PA-C - Last Filed: 04/29/21 19:21> Narrative Exam Narrative: GENERAL: 65 year old patient appears stated age. Well-developed patient, in no acute distress. HEAD: Atraumatic. Normocephalic. EYES: Pupils equal round and reactive. Extraocular motions intact. No scleral icterus. No injection or drainage. ENT: Nose without bleeding, purulent drainage. Throat without erythema, tonsillar hypertrophy or exudate. Airway patent. NECK: Trachea midline. Non tender CARDIOVASCULAR: Regular rate and rhythm without murmurs, gallops, or rubs. RESPIRATORY: Clear to auscultation. Breath sounds equal bilaterally. No wheezes, rales, or rhonchi. GASTROINTESTINAL: Abdomen soft, nondistended. Tenderness to palpation appreciated throughout the left upper quadrant, left lower quadrant, right lower quadrant. No masses appreciated. Previous abdominal surgical scars noted. EXTREMITIES: No edema or joint tenderness. BACK: Nontender without deformity or crepitance. No flank tenderness. NEURO: AOx3. SKIN: No rash or erythema of visible areas Initial Vital Signs Initial Vital Signs: Vital Signs Temperature 97.8 F 04/29/21 17:33 Pulse Rate 95 H 04/29/21 17:33 Respiratory Rate 18 04/29/21 17:33 Blood Pressure 161/105 H 04/29/21 17:33 Pulse Oximetry 96 04/29/21 17:33 <Rayne Cooley DO - Last Filed: 04/29/21 23:35> Initial Vital Signs Initial Vital Signs: Vital Signs Temperature 97.8 F 04/29/21 17:33 Pulse Rate 95 H 04/29/21 17:33 Respiratory Rate 18 04/29/21 17:33 Blood Pressure 161/105 H 04/29/21 17:33 Pulse Oximetry 96 04/29/21 17:33 Course <Raffaele Woodward PA-C - Last Filed: 04/29/21 19:21> Course Course Narrative: CBC, CMP, lipase, urinalysis, troponin, EKG, COVID-19 test performed. IV Zofran and bolus normal saline administered. Orders Ordered: ED Orders 04/29/21 17:40 CBC Auto Diff [Complete Blood Count AUTO DIFF] Stat CMP [Comprehensive Metabolic Panel] Stat COVID19 -Nasal swab/Pre-Proc Stat Lipase Stat Troponin & CK Cardiac Panel Stat 04/29/21 17:49 EKG-12 Lead Stat 04/29/21 18:55 Urine Microscopic Stat Discontinued Medications Sodium Chloride (Normal Saline 0.9%) 1,000 mls @ 1,000 mls/hr IV BOLUS ONE Stop: 04/29/21 18:56 Last Infusion: 04/29/21 19:24 Dose: 0 mls/hr Documented by: Admin: 04/29/21 18:03 Dose: 1,000 mls/hr Documented by: CHAITANYA Ondansetron HCl (Ondansetron 4 Mg/2 Ml Inj) 4 mg IV NOW ONE Stop: 04/29/21 17:58 Last Admin: 04/29/21 18:03 Dose: 4 mg Documented by: CHAITANYA Vital Signs Vital signs: Vital Signs - 8 hr 04/29/21 17:33 04/29/21 19:34 Temperature 97.8 F Pulse Rate 95 H 69 Respiratory Rate 18 Blood Pressure 161/105 H 117/68 Pulse Oximetry 96 98 <Rayne Cooley DO - Last Filed: 04/29/21 23:35> Orders Ordered: ED Orders 04/29/21 17:40 CBC Auto Diff [Complete Blood Count AUTO DIFF] Stat CMP [Comprehensive Metabolic Panel] Stat COVID19 -Nasal swab/Pre-Proc Stat Lipase Stat Troponin & CK Cardiac Panel Stat 04/29/21 17:49 EKG-12 Lead Stat 04/29/21 18:55 Urine Microscopic Stat Discontinued Medications Sodium Chloride (Normal Saline 0.9%) 1,000 mls @ 1,000 mls/hr IV BOLUS ONE Stop: 04/29/21 18:56 Last Infusion: 04/29/21 19:24 Dose: 0 mls/hr Documented by: Admin: 04/29/21 18:03 Dose: 1,000 mls/hr Documented by: CHAITANYA Ondansetron HCl (Ondansetron 4 Mg/2 Ml Inj) 4 mg IV NOW ONE Stop: 04/29/21 17:58 Last Admin: 04/29/21 18:03 Dose: 4 mg Documented by: CHAITANYA Vital Signs Vital signs: Vital Signs - 8 hr 04/29/21 17:33 04/29/21 19:34 Temperature 97.8 F Pulse Rate 95 H 69 Respiratory Rate 18 Blood Pressure 161/105 H 117/68 Pulse Oximetry 96 98 MDM - Nausea/Vomiting/Diarrhea <Raffaele Woodward PA-C - Last Filed: 04/29/21 19:21> Lab Data Result diagrams: 04/29/21 17:40 04/29/21 17:40 Labs: Lab Results 04/29/21 04/29/21 04/29/21 Range/Units 17:40 17:40 17:40 WBC 6.9 (4.5-11.0) X10^3/uL RBC 4.32 (4.0-5.2) X10^6/uL Hgb 12.8 (12.0-16.0) g/dL Hct 38.4 (36-46) % MCV 88.9 (80-100) fL MCH 29.7 (26-34) PG MCHC 33.4 (30-36) % RDW 14.0 (11.6-14.8) % Plt Count 382 (150-400) X10^3/uL Neut % (Auto) 58.8 (50-75) % Lymph % (Auto) 29.9 (25-40) % Miner % (Auto) 8.1 (3-14) % Eos % (Auto) 2.3 (2-4) % Baso % (Auto) 0.9 (0-2) % Neut # (Auto) 4100 (1032-0565) /uL Lymph # (Auto) 2100 (4231-3094) /uL Miner # (Auto) 600 (0-900) /uL Eos # (Auto) 200 (0-450) /uL Baso # (Auto) 100 (0-100) /uL Sodium 138 (137-145) mmol/L Potassium 4.1 (3.4-5.1) mmol/L Chloride 105 (98-107) mmol/L Carbon Dioxide 25 (22-32) mmol/L BUN 21 H (7-17) mg/dL Creatinine 0.60 (0.52-1.04) mg/dL Estimated GFR > 60.0 (>60) mL/min BUN/Creatinine Ratio 35.0 H (6-22) Glucose 90 (80-110) mg/dL Calcium 9.4 (8.4-10.2) mg/dL Total Bilirubin 0.3 (0.2-1.3) mg/dL AST 26 (14-36) IU/L ALT 20 (<35) IU/L Alkaline Phosphatase 95 (38-126) U/L Total Creatine Kinase (30-135) U/L CK-MB (CK-2) CK-MB (CK-2) Rel Index Troponin I (0.01-0.034) ng/mL Total Protein 7.7 (6.3-8.2) g/dL Albumin 4.5 (3.5-5.0) g/dL Globulin 3.2 (1.7-4.1) g/dL Albumin/Globulin Ratio 1.4 (1.0-2.8) Lipase 103 (23-300) U/L Urine RBC (0-5/HPF) Urine WBC (0-5/HPF) Ur Squamous Epith Cells (0-5/HPF) Urine Bacteria (None) Ur Culture Indicated? SARS-CoV-2 (PCR) Negative (Negative) 04/29/21 04/29/21 Range/Units 17:40 18:55 WBC (4.5-11.0) X10^3/uL RBC (4.0-5.2) X10^6/uL Hgb (12.0-16.0) g/dL Hct (36-46) % MCV (80-100) fL MCH (26-34) PG MCHC (30-36) % RDW (11.6-14.8) % Plt Count (150-400) X10^3/uL Neut % (Auto) (50-75) % Lymph % (Auto) (25-40) % Miner % (Auto) (3-14) % Eos % (Auto) (2-4) % Baso % (Auto) (0-2) % Neut # (Auto) (1400-4362) /uL Lymph # (Auto) (4304-7611) /uL Miner # (Auto) (0-900) /uL Eos # (Auto) (0-450) /uL Baso # (Auto) (0-100) /uL Sodium (137-145) mmol/L Potassium (3.4-5.1) mmol/L Chloride (98-107) mmol/L Carbon Dioxide (22-32) mmol/L BUN (7-17) mg/dL Creatinine (0.52-1.04) mg/dL Estimated GFR (>60) mL/min BUN/Creatinine Ratio (6-22) Glucose (80-110) mg/dL Calcium (8.4-10.2) mg/dL Total Bilirubin (0.2-1.3) mg/dL AST (14-36) IU/L ALT (<35) IU/L Alkaline Phosphatase (38-126) U/L Total Creatine Kinase 26 L (30-135) U/L CK-MB (CK-2) TNP CK-MB (CK-2) Rel Index TNP Troponin I < 0.012 (0.01-0.034) ng/mL Total Protein (6.3-8.2) g/dL Albumin (3.5-5.0) g/dL Globulin (1.7-4.1) g/dL Albumin/Globulin Ratio (1.0-2.8) Lipase (23-300) U/L Urine RBC 1-5/hpf (0-5/HPF) Urine WBC 5-10/hpf H (0-5/HPF) Ur Squamous Epith Cells 5-10 /hpf H (0-5/HPF) Urine Bacteria Few (2-10) H (None) Ur Culture Indicated? Cult not indicated SARS-CoV-2 (PCR) (Negative) Urine Dip Bedside Urine Glucose Negative Bedside Urine Bilirubin - Negative Bedside Urine Ketone + 15 Urine Specific [place] 1.020 Bedside Urine Occult Blood - Negative Bedside Urine pH 6.0 Bedside Urine Protein - Negative Bedside Urine Urobilinogen 0.2 Bedside Urine Nitrite - Negative Bedside Urine Leukocytes - Negative Esterase <Rayne Cooley, DO - Last Filed: 04/29/21 23:35> Lab Data Labs: Lab Results 04/29/21 04/29/21 04/29/21 Range/Units 17:40 17:40 17:40 WBC 6.9 (4.5-11.0) X10^3/uL RBC 4.32 (4.0-5.2) X10^6/uL Hgb 12.8 (12.0-16.0) g/dL Hct 38.4 (36-46) % MCV 88.9 (80-100) fL MCH 29.7 (26-34) PG MCHC 33.4 (30-36) % RDW 14.0 (11.6-14.8) % Plt Count 382 (150-400) X10^3/uL Neut % (Auto) 58.8 (50-75) % Lymph % (Auto) 29.9 (25-40) % Miner % (Auto) 8.1 (3-14) % Eos % (Auto) 2.3 (2-4) % Baso % (Auto) 0.9 (0-2) % Neut # (Auto) 4100 (5773-9380) /uL Lymph # (Auto) 2100 (4887-1007) /uL Miner # (Auto) 600 (0-900) /uL Eos # (Auto) 200 (0-450) /uL Baso # (Auto) 100 (0-100) /uL Sodium 138 (137-145) mmol/L Potassium 4.1 (3.4-5.1) mmol/L Chloride 105 (98-107) mmol/L Carbon Dioxide 25 (22-32) mmol/L BUN 21 H (7-17) mg/dL Creatinine 0.60 (0.52-1.04) mg/dL Estimated GFR > 60.0 (>60) mL/min BUN/Creatinine Ratio 35.0 H (6-22) Glucose 90 (80-110) mg/dL Calcium 9.4 (8.4-10.2) mg/dL Total Bilirubin 0.3 (0.2-1.3) mg/dL AST 26 (14-36) IU/L ALT 20 (<35) IU/L Alkaline Phosphatase 95 (38-126) U/L Total Creatine Kinase (30-135) U/L CK-MB (CK-2) CK-MB (CK-2) Rel Index Troponin I (0.01-0.034) ng/mL Total Protein 7.7 (6.3-8.2) g/dL Albumin 4.5 (3.5-5.0) g/dL Globulin 3.2 (1.7-4.1) g/dL Albumin/Globulin Ratio 1.4 (1.0-2.8) Lipase 103 (23-300) U/L Urine RBC (0-5/HPF) Urine WBC (0-5/HPF) Ur Squamous Epith Cells (0-5/HPF) Urine Bacteria (None) Ur Culture Indicated? SARS-CoV-2 (PCR) Negative (Negative) 04/29/21 04/29/21 Range/Units 17:40 18:55 WBC (4.5-11.0) X10^3/uL RBC (4.0-5.2) X10^6/uL Hgb (12.0-16.0) g/dL Hct (36-46) % MCV (80-100) fL MCH (26-34) PG MCHC (30-36) % RDW (11.6-14.8) % Plt Count (150-400) X10^3/uL Neut % (Auto) (50-75) % Lymph % (Auto) (25-40) % Miner % (Auto) (3-14) % Eos % (Auto) (2-4) % Baso % (Auto) (0-2) % Neut # (Auto) (4936-4323) /uL Lymph # (Auto) (7988-8639) /uL Miner # (Auto) (0-900) /uL Eos # (Auto) (0-450) /uL Baso # (Auto) (0-100) /uL Sodium (137-145) mmol/L Potassium (3.4-5.1) mmol/L Chloride (98-107) mmol/L Carbon Dioxide (22-32) mmol/L BUN (7-17) mg/dL Creatinine (0.52-1.04) mg/dL Estimated GFR (>60) mL/min BUN/Creatinine Ratio (6-22) Glucose (80-110) mg/dL Calcium (8.4-10.2) mg/dL Total Bilirubin (0.2-1.3) mg/dL AST (14-36) IU/L ALT (<35) IU/L Alkaline Phosphatase (38-126) U/L Total Creatine Kinase 26 L (30-135) U/L CK-MB (CK-2) TNP CK-MB (CK-2) Rel Index TNP Troponin I < 0.012 (0.01-0.034) ng/mL Total Protein (6.3-8.2) g/dL Albumin (3.5-5.0) g/dL Globulin (1.7-4.1) g/dL Albumin/Globulin Ratio (1.0-2.8) Lipase (23-300) U/L Urine RBC 1-5/hpf (0-5/HPF) Urine WBC 5-10/hpf H (0-5/HPF) Ur Squamous Epith Cells 5-10 /hpf H (0-5/HPF) Urine Bacteria Few (2-10) H (None) Ur Culture Indicated? Cult not indicated SARS-CoV-2 (PCR) (Negative) Urine Dip Bedside Urine Glucose Negative Bedside Urine Bilirubin - Negative Bedside Urine Ketone + 15 Urine Specific [place] 1.020 Bedside Urine Occult Blood - Negative Bedside Urine pH 6.0 Bedside Urine Protein - Negative Bedside Urine Urobilinogen 0.2 Bedside Urine Nitrite - Negative Bedside Urine Leukocytes - Negative Esterase ECG Data Interpretation: Normal sinus rhythm rate 71 WI interval 136 keep for SVT [address] changes or T-wave inversions Critical Care Time <Raffaele Woodward PA-C - Last Filed: 04/29/21 19:21> Critical Care Time Attestation: To consider diverticulitis versus diverticulosis versus gastroenteritis versus appendicitis versus cholecystitis versus cholelithiasis versus choledoc holithiasis versus acute cholangitis. Overall, physical examination lab studies obtained in the emergency department today returned reassuring. Additionally, patient's vital signs remained stable throughout her entire stay in the emergency department. Discussed lab studies with patient and informed her that no acute abnormality was identified today that would require further evaluation or emergent intervention. Patient states that this time she is comfortable being discharged home. I discussed strict return precautions with the patient prior to discharge. At this time patient is stable and ready for discharge. Discharge Plan Departure Patient Disposition: Home Clinical Impression: Gastroenteritis, Abdominal pain, Vomiting Instructions: DI for Abdominal Pain-Adult Activity Restrictions/Additional Instructions: *You have been diagnosed with gastroenteritis, abdominal pain, vomiting *What to do: *Please continue to take your regular medications as directed. [X] New medication prescriptions sent to your pharmacy: [facility] [ ] New medication written as a paper prescription [ ] No new medications given Lab studies obtained in the emergency department today returned reassuring did not show signs of acute abnormality. I have prescribed course of medications to help alleviate nausea. If symptoms of diarrhea persist he may attempt taking Imodium. I recommend following up with the primary care provider within the next 2-3 days for further evaluation. Do not hesitate to return to the emergency department if you experience worsening abdominal pain, intractable vomiting, blood in your stool, or any other concerning symptoms. *Please follow up with your primary care provider in 2-3 days, call for an appo intment. Let them know you were seen in the Emergency Department and that we ask that you be seen in follow up. We will electronically transmit a record of today's note if your PCP is in our system *If you do not have a primary care provider please contact the [facility] Resource line at [phone]. They will ask some questions about your medical history and help get you set up with a doctor in the community. *Return to Emergency Department if you should have any new, worsening or conc erning symptoms, such as fever greater than 101 F, shaking chills, worsening pain, persistent vomiting or other bothersome symptoms. Prescriptions: New ondansetron 4 mg tablet,disintegrating 4 mg PO Q6H PRN (Reason: nausea and vomiting) Qty: 30 0RF metoclopramide HCl [Reglan] 10 mg tablet 10 mg PO Q6H PRN (Reason: nausea and vomiting) Qty: 30 0RF No Action Nature-Throid 97.5 MG tablet 97.5 mg QDAY Qty: 0 0RF alprazolam 0.5 mg Tablet 0.5 mg PO TID PRN (Reason: Anxiety) 0RF progesterone [Progesterone in Oil] 50 mg/mL Oil 50 mg IM DAILY 0RF Label Comments: pt unsure of dosage/ uses as topical testosterone 1 % (25 mg/2.5gram) Gel In Packet 1 packet TRANSDERMAL QAM 0RF Label Comments: pt uses prn and unsure of dosage estradiol valerate 0RF Label Comments: pt unsure of dosage or exact name Referrals: Shyanne De Leon PA-C [Primary Care Provider] - <Rayne Cooley DO - Last Filed: 04/29/21 23:35> Cosign ED Attending Padmaature Attestation: I was immediately available in the department for consultation. Documentation has been reviewed. I agree with assessment and plan.
[2021-04-29] MEDS: SODIUM CHLORIDE 0.9% 1,000 ML 1000 ML IV (18:03)
[2021-04-29] MEDS: ONDANSETRON 4 MG/2 ML INJ IV (18:03)
[2021-04-29 18:06] LABS: Alanine Aminotransferase 20 IU/L (<35); Albumin 4.5 g/dL (3.5-5.0); Albumin Globulin Ratio 1.4 (1.0-2.8); Alkaline Phosphatase 95 U/L (38-126); Aspartate Aminotransferase 26 IU/L (14-36); Bilirubin Total 0.3 mg/dL (0.2-1.3); Blood Urea Nitrogen 21 mg/dL (7-17); Calcium 9.4 mg/dL (8.4-10.2); Carbon Dioxide 25 mmol/L (22-32); Chloride 105 mmol/L (98-107); Creatine Kinase 26 U/L (30-135); Estimated Glomerular Filt Rate > 60.0 mL/min (>60); Globulin 3.2 g/dL (1.7-4.1); Glucose 90 mg/dL (80-110); HEMOLYSIS < 15 (0-50); Lipase 103 U/L (23-300); Potassium 4.1 mmol/L (3.4-5.1); Sodium 138 mmol/L (137-145); Total Protein 7.7 g/dL (6.3-8.2)
[2021-04-29 18:17] LABS: Troponin I < 0.012 ng/mL (0.01-0.034)
[2021-04-29 19:26] LABS: Bacteria Urine Few (2-10); Culture Indicated Urine Cult Not Indicated; RBC Urine 1-5/HPF (0-5/HPF); Squamous Epithelial Cell Urine 5-10 /HPF (0-5/HPF); WBC Urine 5-10/HPF (0-5/HPF)
[2021-04-29 19:34] VITALS: BP 117/68; PULSE 69; O2SAT 98
== END 2021-04-29 19:30 | disposition home or self-care (01) ==
PROVIDERS: Emergency Provider Physician Assistant; PCP Physician Assistant
DX: K52.9 Noninfective gastroenteritis and colitis, unspecified (principal); Z20.822 Contact with and (suspected) exposure to COVID-19
CPT/HCPCS: 36415; 80053; 81003; 81015; 82550; 83690; 84484; 85025; 87635; 93005; 93010; 96361; 96374; 99284; C9803; J2405

== ENCOUNTER → 2022-03-10 09:38 | Outpatient (CLI) | payer OTHER, SELFPAY ==
[2020-06-28 13:28] VITALS: BMI 29.5
--- NOTE | 2022-03-10 09:41 | DI.MRI.S_ITS ---
PROCEDURE: MR HEAD/BRAIN WO CON INDICATIONS: Transient cerebral ischemic attack, unspecified TECHNIQUE: Non-contrast axial T1 spin echo, axial T2 fast spin echo, sagittal and axial FLAIR, coronal T2 fast spin echo, axial gradient echo, axial diffusion and ADC through the brain. COMPARISON: None. FINDINGS: Image quality: Excellent. CSF spaces: Ventricles appear symmetric in size and shape. Basal cisterns are patent. No extra-axial fluid collections. Brain: No intracranial bleeds or mass effects. There is mild cerebral volume loss for age. There are mild periventricular and deep white matter chronic small vessel ischemic changes. Brainstem appears normal. Diffusion-weighted images show no acute ischemic insults. No chronic ischemic insults. Normal intravascular flow voids are present. Skull and face: Calvarial bone marrow is normal in signal. Orbits are normal. Sinuses: Sinuses and mastoids are clear. IMPRESSION: Mild global cerebral volume loss and chronic microvascular ischemic changes. Otherwise normal study. Dictated by: Jonathan Tucker M.D. on 03/12/2022 at 8:20 Approved by: Jonathan Tucker M.D. on 03/12/2022 at 8:21
== END ==
PROVIDERS: PCP Physician Assistant; Referring Provider Internal Medicine; Visit Provider Internal Medicine
DX: G45.9 Transient cerebral ischemic attack, unspecified (principal)
CPT/HCPCS: 70551

== ENCOUNTER → 2022-04-10 09:55 | Outpatient (CLI) | payer OTHER, SELFPAY ==
[2020-06-28 13:28] VITALS: BMI 29.5
--- NOTE | 2022-04-10 | DI.US.S_ITS ---
PROCEDURE: US CAROTID DOPPLER BI INDICATIONS: Transient cerebral ischemic attack TECHNIQUE: Color and pulse Doppler interrogation was performed of both carotid systems, with image documentation and velocity measurements. COMPARISON: [facility], MR, MR HEAD/BRAIN WO CON, 03/10/2022, 10:23. FINDINGS: Stenosis calculations are based on SRU (Society of Radiologists in Ultrasound) criteria. The flow velocities and the arterial waveforms are normal within both carotid arterial systems. The estimated degree of internal carotid artery stenosis is less than 50%. Antegrade flow is confirmed within both vertebral arteries. IMPRESSION: No hemodynamically significant stenosis is seen. Dictated by: Efrne Kent M.D. on 04/10/2022 at 11:18 Approved by: Efren Kent M.D. on 04/10/2022 at 11:19
== END ==
PROVIDERS: PCP Physician Assistant; Referring Provider Internal Medicine; Visit Provider Internal Medicine
DX: G45.9 Transient cerebral ischemic attack, unspecified (principal)
CPT/HCPCS: 93880

== ENCOUNTER → 2022-10-02 10:42 | Outpatient (CLI) | payer MEDICARE, OTHER, SELFPAY ==
[2020-06-28 13:28] VITALS: BMI 29.5
--- NOTE | 2022-10-02 11:00 | DI.DEXA.S_ITS ---
Bone Density Report Name: DYLON RODAS Age: 67 Sex: Female Ethnicity: White Date of : 1955 Indication: postmenopausal; screening for osteoporosis; Referring Provider: CLAIR COLLINS Study: Bone densitometry was performed. Exam Date: October 02, 2022 Accession number: [id number] Bone Density: Region BMD T-score Z-score Classification AP Spine(L1-L4) 0.980 -0.6 1.2 Normal Femoral Neck (Left) 0.592 -2.3 -0.8 Osteopenia Total Hip (Left) 0.813 -1.1 0.2 Osteopenia Femoral Neck (Right) 0.640 -1.9 -0.4 Osteopenia Total Hip (Right) 0.861 -0.7 0.6 Normal Total Hip Mean 0.837 -0.9 0.4 Normal World Health Organization criteria for BMD impression classify patients as: Normal (T-score at or above -1.0), Osteopenia (T-score between -1.0 and -2.5), or Osteoporosis (T-score at or below -2.5). 10-year Fracture Risk(1): Major Osteoporotic Fracture 12% Hip Fracture 2.1% Reported Risk Factors: [place] (), Neck BMD=0.592, BMI=24.4 (1) FRAX(R) Version 3.08. Fracture probability calculated for an untreated patient. Fracture probability may be lower if the patient has received treatment. Impression: The patient has low bone mass, based on the Left Femoral Neck T-score. The patient has an estimated ten-year risk of hip fracture of 2.1% and an estimated ten-year risk of major fracture of 12%, based on the WHO FRAX algorithm. Discussion: BONE DENSITY IS LOW AT ONE OR MORE SKELETAL SITES. This patient's lowest T-score is low at one or more skeletal sites. It meets the World Health Organization's (WHO) criteria for ?low bone mass? (T-score between -1.0 and -2.5). The patient's 10-year risk of fracture as calculated by FRAX is less than the threshold where pharmacological therapy is recommended by the National Osteoporosis Foundation (NOF). However, all treatment decisions require clinical judgment and consideration of individual patient factors, including patient preferences, comorbidities, previous drug use, risk factors not captured in the FRAX model (e.g., frailty, falls, vitamin D deficiency, increased bone turnover, interval significant decline in bone density) and possible under or overestimation of fracture risk by FRAX. The patient should follow a healthful lifestyle (good nutrition with adequate calcium and vitamin D, and appropriate weight-bearing exercise). Follow-Up: Consider repeating this study in 2 to 3 years to reassess this patient's status, or sooner if there is some new clinical indication. Reported by: JENNIFER ACOSTA M.D. on 10/02/2022 11:06:00 AM.
== END ==
PROVIDERS: PCP Physician Assistant; Referring Provider Nurse Practitioner; Visit Provider Nurse Practitioner
DX: M85.852 Other specified disorders of bone density and structure, left thigh (principal); Z13.820 Encounter for screening for osteoporosis; Z78.0 Asymptomatic menopausal state
CPT/HCPCS: 77080

== ENCOUNTER 2022-11-13 09:30 | Emergency (ER) | payer MEDICARE, OTHER, SELFPAY ==
[2020-06-28 13:28] VITALS: BMI 29.5
[2022-11-13] VITALS (9 sets, daily range): BP systolic 107–158; BP diastolic 66–89; PULSE 70–87; RESP 15–22; TEMP 36.5; O2SAT 94–100; BMI 23.9
--- NOTE | 2022-11-13 10:17 | DI.RAD.S_ITS ---
PROCEDURE: XR CHEST 1V INDICATIONS: TIA TECHNIQUE: One view of the chest was acquired. COMPARISON: [facility], , CHEST 1 VIEW, 04/27/2009, 15:30. FINDINGS: Surgical changes and devices: None. Lungs and pleura: Lungs are clear. No pleural effusions or pneumothorax. Mediastinum: Mediastinal contours appear normal. Heart size is normal. Bones and chest wall: No suspicious bony lesions. Overlying soft tissues appear unremarkable. IMPRESSION: No acute pulmonary process. Dictated by: Lali Edmond M.D. on 11/13/2022 at 11:55 Approved by: Lali Edmond M.D. on 11/13/2022 at 11:57
--- NOTE | 2022-11-13 10:23 | ED.NEUROSD ---
HPI - Neuro Symptoms/Deficit General Chief Complaint: Neuro Symptoms/Deficit Stated Complaint: REF by PCP for MRI 3rd TIA (11/07/22) Time Seen by Provider: 11/13/22 10:16 Source: patient Mode of arrival: Ambulatory History of Present Illness HPI Narrative: Patient is a 67-year-old female history of hypothyroidism presenting today with intermittent episodes of left temporal pain left facial numbness dizziness and inability to walk. She reports that this is happened 3 times since February last happened 4 days ago. Her symptoms have completely resolved now. She apparently has had consult with a neurologist who recommended that she come to the ED immediately for an MRI. She denies any chest pain palpitations or any shortness of breath. She is not having any numbness tingling or weakness now. She is no facial droop or difficulty speaking. She reports that she is taking aspirin daily Related Data Home Medications Medication Instructions Recorded Confirmed thyroid (pork) 97.5 mg tablet 60 mg QDAY ##0 04/04/17 05/15/22 (Nature-Throid) alprazolam 0.5 mg tablet 0.5 mg PO TID PRN Anxiety 03/10/19 05/15/22 estradiol 25 mg implant pellet mg SUBCUT 11/14/21 testosterone 50 mg implant pellet mg implant 11/14/21 tirzepatide 15 mg/0.5 mL 15 mg SUBCUT QWEEK 05/15/22 05/15/22 subcutaneous pen injector (Neel) Previous Rx's Medication Instructions Recorded metoclopramide HCl 10 mg tablet 10 mg PO Q6H PRN nausea and 04/29/21 (Reglan) vomiting #30 tabs Allergies Allergy/AdvReac Type Severity Reaction Status Date / Time levofloxacin [From LEVAQUIN] Allergy Severe ANXIETY Verified 11/13/22 09:41 ATTACK, FEELS LIKE I'M HAVING A HEART ATTACK Penicillins [PENICILLINS] Allergy Severe Hives Verified 11/13/22 09:41 Review of Systems Review of Systems ROS Unobtainable: All systems reviewed & are unremarkable except as noted in HPI and below Patient History Medical History Acquired hypothyroidism Burning mouth syndrome Cold intolerance Diverticulitis large intestine Elective surgery Hemochromatosis Hiatal hernia Postmenopausal Rheumatoid disease Uterine fibroid Vaginal bleeding Surgical History H/O abdominoplasty History of bilateral tubal ligation History of repair of hiatal hernia History of tonsillectomy and adenoidectomy Status post wisdom tooth extraction Family History Father Hypertension Stroke Grandmother Diabetes mellitus Stroke Cancer Brother Cancer Social History marital status: household members: spouse Smoking Status: Never smoker alcohol intake: current Smoking Status: Never smoker alcohol intake frequency: 0-2 drinks per day Substance Use Type: does not use and other Exam Initial Vital Signs Initial Vital Signs: Vital Signs Temperature 97.7 F 11/13/22 09:34 Pulse Rate 85 11/13/22 09:34 Respiratory Rate 15 11/13/22 09:34 Blood Pressure 158/89 H 11/13/22 09:34 Pulse Oximetry 98 11/13/22 09:34 Oxygen Delivery Method Room Air 11/13/22 09:34 GENERAL: Alert well-appearing 67-year-old female and in no acute distress. HEENT: Head atraumatic,EOMI, pupils reactive, face symmetric, moist mucous membranes CARDIOVASCULAR: Regular rate and rhythm without murmurs, rubs or gallops. RESPIRATORY: Breath sounds equal bilaterally, no wheezes rales or rhonchi. ABDOMEN: Soft, nontender. Normoactive bowel sounds all 4 quadrants. No guarding or rebound. EXTREMITIES: Normal range of motion, no clubbing or edema. Neurovascularly intact NEUROLOGICAL: Alert and oriented x4.Normal gait and speech. Cranial nerves II through XII grossly intact. Good vhvnop-iz-isyi, good cxnl-sh-hpgo, strength equal bilaterally, no dysarthria or aphasia, sensation in tact to soft touch bilaterally, no visual changes, no facial droop SKIN: Warm, dry, no laceration, no petechiae, no rashes or lesions. Scores NIH Stroke Scale Level of Conciousness: Alert, keenly responsive Ask month/age: Answers both questions correctly. Open/close eyes, close hand: Performs both tasks correctly Best gaze horizontal: Normal Visual macdonald: No visual loss Facial palsy: Normal symetrical movement Left arm drift: No drift for full 10 sec Right arm drift: No drift for full 10 sec Left leg drift: No drift for full 5 sec Right leg drift: No drift for full 5 sec Limb ataxia: Absent Sensory on face/arms/legs: Normal, no sensory loss Best language: No aphasia, normal Dysarthria: Normal Extinction or inattention: No abnormality Total NIH Stroke scale score: 0 Course Orders Ordered: ED Orders 11/13/22 10:42 Complete Blood Count AUTO DIFF Stat Comprehensive Metabolic Panel Stat Lipase Stat Troponin & CK Cardiac Panel Stat Vital Signs Vital signs: Vital Signs - 8 hr 11/13/22 12:00 11/13/22 12:00 11/13/22 12:30 Pulse Rate 75 Blood Pressure 120/77 129/80 Pulse Oximetry 98 11/13/22 12:30 Pulse Rate 79 Blood Pressure Pulse Oximetry 97 MDM - Neuro Symptoms/Deficit Lab Data 11/13/22 10:42 11/13/22 10:42 Labs: Lab Results 11/13/22 11/13/22 Range/Units 10:42 10:42 WBC 6.0 (4.5-11.0) X10^3/uL RBC 4.32 (4.0-5.2) X10^6/uL Hgb 13.9 (12.0-16.0) g/dL Hct 40.6 (36-46) % MCV 94.0 (80-100) fL MCH 32.2 (26-34) PG MCHC 34.3 (30-36) % RDW 14.0 (11.6-14.8) % Plt Count 312 (150-400) X10^3/uL Neut % (Auto) 61.1 (50-75) % Lymph % (Auto) 29.5 (25-40) % [place] % (Auto) 7.7 (3-14) % Eos % (Auto) 1.2 L (2-4) % Baso % (Auto) 0.5 (0-2) % Neut # (Auto) 3700 (4399-0890) /uL Lymph # (Auto) 1800 (4962-6744) /uL [place] # (Auto) 500 (0-900) /uL Eos # (Auto) 100 (0-450) /uL Baso # (Auto) 0 (0-100) /uL Sodium 135 L (137-145) mmol/L Potassium 4.1 (3.4-5.1) mmol/L Chloride 104 (98-107) mmol/L Carbon Dioxide 25 (22-32) mmol/L BUN 18 H (7-17) mg/dL Creatinine 0.59 (0.52-1.04) mg/dL Estimated GFR > 60 (>60) mL/min BUN/Creatinine Ratio 30.5 H (6-22) Glucose 83 (80-110) mg/dL Calcium 8.9 (8.4-10.2) mg/dL Total Bilirubin 0.5 (0.2-1.3) mg/dL AST 26 (14-36) IU/L ALT 22 (<35) IU/L Alkaline Phosphatase 74 (38-126) U/L Total Creatine Kinase 24 L (30-135) U/L Troponin I < 0.012 (0.01-0.034) ng/mL Total Protein 6.8 (6.3-8.2) g/dL Albumin 4.0 (3.5-5.0) g/dL Globulin 2.8 (1.7-4.1) g/dL Albumin/Globulin Ratio 1.4 (1.0-2.8) Lipase 118 (23-300) U/L Imaging Data Chest x-ray: Radiologist's Impression: PROCEDURE:? XR CHEST 1V ? INDICATIONS:? TIA ? TECHNIQUE:? One view of the chest was acquired.? ? COMPARISON:? [facility], , CHEST 1 VIEW, 04/27/2009, 15:30. ? FINDINGS:? ? Surgical changes and devices:? None.? ? Lungs and pleura:? Lungs are clear.? No pleural effusions or pneumothorax.? ? Mediastinum:? Mediastinal contours appear normal.? Heart size is normal.? ? Bones and chest wall:? No suspicious bony lesions.? Overlying soft tissues appear unremarkable.? ? IMPRESSION:? No acute pulmonary process. ? ? Dictated by: Lali Edmond M.D. on 11/13/2022 at 11:55 ? ? Approved by: Lali Edmond M.D. on 11/13/2022 at 11:57 ? CTA - brain/neck: Radiologist's Impression: PROCEDURE:? CT ANGIO HEAD AND NECK ? INDICATIONS:? Left-sided numbness with dizziness intermittently resolved ? TECHNIQUE:? After the administration of intravenous contrast, 1 mm thick sections acquired from the aortic arch through the [place] of [place].? 3-dimensional zobpgfw-nxgwcejlr-aqoqpmfasi (MIP) and/or volume rendering reformats were acquired of the central intracranial vasculature and neck separately. For radiation dose reduction, the following was used:? automated exposure control, adjustment of mA and/or kV according to patient size.? ? COMPARISON:? [facility], MR, MR HEAD/BRAIN WO CON, 03/10/2022, 10:23.? [facility], MR, MR HEAD/BRAIN WO CON, 11/13/2022, 10:43.? [facility], CR, XR CHEST 1V, 11/13/2022, 10:22. ? FINDINGS:? Image quality:? There is streak artifact seen through the level of the shoulders. ? BRAIN:? CSF spaces:? Ventricles are normal in size and shape.? Basal cisterns are patent.? No extra-axial fluid collections.? ? Brain:? No significant abnormality of the brain can be seen. ? ? ? Skull and face:? Calvarium and facial bones appear intact, without suspicious lesions.? Orbits appear normal.? ? Sinuses:? Sinuses and mastoids are clear.? ? HEAD CT ANGIOGRAPHY:? Anterior circulation:? Intracranial internal carotid arteries are normal in size and flow.? The flow within the paired anterior cerebral arteries is normal and symmetric.? The flow within the middle cerebral arteries is normal and symmetric.? The anterior communicating artery is seen.? No aneurysms are seen.? ? Posterior circulation:? Visualized portions of the vertebral arteries demonstrate normal caliber, and join to form a normal appearing basilar artery.? There is a prominent right posterior communicating artery seen, with an accompanying diminutive right P1 segment. This is attributed to a type origin of the right posterior cerebral artery, which is considered to be a normal developmental variant of typically no clinical consequence.? The flow within the posterior cerebral arteries is normal and symmetric.? No aneurysms are seen.? ? NECK CT ANGIOGRAPHY:? Carotid system:? The great vessels demonstrate a conventional anatomy as they arise from the aortic arch.? The origins of the common carotid arteries appear patent.? The common carotid arteries demonstrate normal caliber and courses.? The bifurcation regions are both widely patent.? The internal carotid arteries demonstrate normal calibers and courses.? ? Posterior circulation:? The origins of the vertebral arteries both appear widely patent.? The more superior extracranial portions of both vertebral arteries also demonstrate normal courses and calibers.? The left vertebral artery is dominant to the right. ? Soft tissues:? Visualized neck soft tissues demonstrate no suspicious abnormalities.? Bilateral thyroid nodules are seen that measure up to 12 mm. ? Bones:? No suspicious bony lesions.? Visualized cervical spine appears normally aligned.? Lvwj-qe-loycfupp cervical spine degenerative change can be seen. ? ? IMPRESSION:? No significant intracranial arterial abnormality is seen.? ? Within the arteries of the neck, no hemodynamically significant stenosis can be seen. ? No findings of dissection are seen. ? Bilateral thyroid nodules are seen measure up to 12 mm.? In a patient of this age, no specific imaging follow-up is recommended for nodules of this size. ? ? ? Additional findings:? type origin of the right posterior cerebral artery. ? ? ? Any quantitative measurements of stenosis were performed using NASCET criteria.? ? ? Dictated by: Efren Kent M.D. on 11/13/2022 at 10:39 ? ? Approved by: Efren Kent M.D. on 11/13/2022 at 10:42 ? MR brain: Radiologist's Impression: PROCEDURE:? MR HEAD/BRAIN WO CON ? INDICATIONS:? tia ? TECHNIQUE:? Non-contrast axial T1 spin echo, axial T2 fast spin echo, sagittal and axial FLAIR, coronal T2 fast spin echo, axial gradient echo, axial diffusion and ADC through the brain.? ? COMPARISON:? [facility], MR, MR HEAD/BRAIN WO CON, 03/10/2022, 10:23.? [facility], CT, CT ANGIO HEAD AND NECK, 11/13/2022, 10:42. ? FINDINGS:? Image quality:? Excellent.? ? CSF spaces:? Ventricles appear symmetric in size and shape.? Basal cisterns are patent.? No extra-axial fluid collections.? ? Brain:? No intracranial bleeds or mass effects.? There is cerebral volume loss for age.? There are periventricular and deep white matter chronic small vessel ischemic changes.? Brainstem appears normal.? Diffusion-weighted images show no acute ischemic insults.? No chronic ischemic insults.? Normal intravascular flow voids are present.? ? Skull and face:? Calvarial bone marrow is normal in signal.? Orbits are normal.? ? Sinuses:? Sinuses and mastoids are clear.? ? ? IMPRESSION:? No findings of acute or subacute infarction can be seen. ? ? Dictated by: Efren Kent M.D. on 11/13/2022 at 10:36 ? ? [facility] Narrative Medical decision making narrative: Patient 67-year-old female presents today with intermittent episodes of left temporal headache left facial numbness and difficulty walking. This has happened 3 or 4 times over last 8-9 months each episode lasts for about 20 minutes and resolves on its own. She was recommended to come in by Neurology. She is has no symptoms now NIH stroke scale is 0. He is not hypertensive. Blood work is reassuring without any clinical significant abnormalities. CT angio and MRI do not show any evidence of large vessel occlusion or acute or subacute stroke. At this time recommend follow-up outpatient with PCP and or Neurology. Possible TIA versus vertigo. She does not have any risk factors for stroke accept age. Discharge Plan Departure Patient Disposition: Home Clinical Impression: No problem, feared complaint unfounded Instructions: DI for Transient Ischemic Attack Activity Restrictions/Additional Instructions: *You have been diagnosed with no evidence of stroke *What to do: At this time scans and blood work are reassuring no evidence of stroke. Please follow-up with Neurology *Continue to take medications as directed *Follow up with your primary care provider in 2-3 days or call [phone] *Return to ER if you should have numbness tingling weakness speech difficulty or any new, worsening or concerning symptoms Prescriptions: No Action Nature-Throid 97.5 MG tablet 60 mg QDAY Qty: 0 alprazolam 0.5 mg Tablet 0.5 mg PO TID PRN (Reason: Anxiety) testosterone 50 mg Pellet IMPLANT estradiol 25 mg Pellet SUBCUT Patient Comments: pt unsure of dose Mounjaro 15 mg/0.5 mL Pen Injector 15 mg SUBCUT QWEEK metoclopramide HCl [Reglan] 10 mg tablet 10 mg PO Q6H PRN (Reason: nausea and vomiting) Qty: 30 0RF Referrals: Shyanne De Leon PA-C [Primary Care Provider] - Stand Alone Forms: Patient Portal/API
--- NOTE | 2022-11-13 10:29 | DI.CT.S_ITS ---
PROCEDURE: CT ANGIO HEAD AND NECK INDICATIONS: Left-sided numbness with dizziness intermittently resolved TECHNIQUE: After the administration of intravenous contrast, 1 mm thick sections acquired from the aortic arch through the [place] of [place]. 3-dimensional ovigsnx-ocbrgckti-qkbbzbthvc (MIP) and/or volume rendering reformats were acquired of the central intracranial vasculature and neck separately. For radiation dose reduction, the following was used: automated exposure control, adjustment of mA and/or kV according to patient size. COMPARISON: [facility], MR, MR HEAD/BRAIN WO CON, 03/10/2022, 10:23. [facility], MR, MR HEAD/BRAIN WO CON, 11/13/2022, 10:43. [facility], CR, XR CHEST 1V, 11/13/2022, 10:22. FINDINGS: Image quality: There is streak artifact seen through the level of the shoulders. BRAIN: CSF spaces: Ventricles are normal in size and shape. Basal cisterns are patent. No extra-axial fluid collections. Brain: No significant abnormality of the brain can be seen. Skull and face: Calvarium and facial bones appear intact, without suspicious lesions. Orbits appear normal. Sinuses: Sinuses and mastoids are clear. HEAD CT ANGIOGRAPHY: Anterior circulation: Intracranial internal carotid arteries are normal in size and flow. The flow within the paired anterior cerebral arteries is normal and symmetric. The flow within the middle cerebral arteries is normal and symmetric. The anterior communicating artery is seen. No aneurysms are seen. Posterior circulation: Visualized portions of the vertebral arteries demonstrate normal caliber, and join to form a normal appearing basilar artery. There is a prominent right posterior communicating artery seen, with an accompanying diminutive right P1 segment. This is attributed to a type origin of the right posterior cerebral artery, which is considered to be a normal developmental variant of typically no clinical consequence. The flow within the posterior cerebral arteries is normal and symmetric. No aneurysms are seen. NECK CT ANGIOGRAPHY: Carotid system: The great vessels demonstrate a conventional anatomy as they arise from the aortic arch. The origins of the common carotid arteries appear patent. The common carotid arteries demonstrate normal caliber and courses. The bifurcation regions are both widely patent. The internal carotid arteries demonstrate normal calibers and courses. Posterior circulation: The origins of the vertebral arteries both appear widely patent. The more superior extracranial portions of both vertebral arteries also demonstrate normal courses and calibers. The left vertebral artery is dominant to the right. Soft tissues: Visualized neck soft tissues demonstrate no suspicious abnormalities. Bilateral thyroid nodules are seen that measure up to 12 mm. Bones: No suspicious bony lesions. Visualized cervical spine appears normally aligned. Expk-th-snhrieyw cervical spine degenerative change can be seen. IMPRESSION: No significant intracranial arterial abnormality is seen. Within the arteries of the neck, no hemodynamically significant stenosis can be seen. No findings of dissection are seen. Bilateral thyroid nodules are seen measure up to 12 mm. In a patient of this age, no specific imaging follow-up is recommended for nodules of this size. Additional findings: type origin of the right posterior cerebral artery. Any quantitative measurements of stenosis were performed using NASCET criteria. Dictated by: Efren Kent M.D. on 11/13/2022 at 10:39 Approved by: Efren Kent M.D. on 11/13/2022 at 10:42
--- NOTE | 2022-11-13 10:29 | DI.MRI.S_ITS ---
PROCEDURE: MR HEAD/BRAIN WO CON INDICATIONS: tia TECHNIQUE: Non-contrast axial T1 spin echo, axial T2 fast spin echo, sagittal and axial FLAIR, coronal T2 fast spin echo, axial gradient echo, axial diffusion and ADC through the brain. COMPARISON: [facility], MR, MR HEAD/BRAIN WO CON, 03/10/2022, 10:23. [facility], CT, CT ANGIO HEAD AND NECK, 11/13/2022, 10:42. FINDINGS: Image quality: Excellent. CSF spaces: Ventricles appear symmetric in size and shape. Basal cisterns are patent. No extra-axial fluid collections. Brain: No intracranial bleeds or mass effects. There is cerebral volume loss for age. There are periventricular and deep white matter chronic small vessel ischemic changes. Brainstem appears normal. Diffusion-weighted images show no acute ischemic insults. No chronic ischemic insults. Normal intravascular flow voids are present. Skull and face: Calvarial bone marrow is normal in signal. Orbits are normal. Sinuses: Sinuses and mastoids are clear. IMPRESSION: No findings of acute or subacute infarction can be seen. Dictated by: Efren Kent M.D. on 11/13/2022 at 10:36 Approved by: Efren Kent M.D. on 11/13/2022 at 10:38
--- NOTE | 2022-11-13 10:44 | PC.NURSE ---
Patient denies any symptoms at present. Told to come in to ER by [facility]
[2022-11-13 10:50] LABS: Add Manual Diff / Slide Review NO; Basophils Absolute Auto 0 /uL (0-100); Basophils Percent Auto 0.5 % (0-2); Eosinophils Absolute Auto 100 /uL (0-450); Eosinophils Percent Auto 1.2 % (2-4); Hematocrit 40.6 % (36-46); Hemoglobin 13.9 g/dL (12.0-16.0); Lymphocytes Absolute Auto 1800 /uL (1100-4500); Lymphocytes Percent Auto 29.5 % (25-40); Mean Corpuscular HGB Conc 34.3 % (30-36); Mean Corpuscular Hemoglobin 32.2 PG (26-34); Monocytes Absolute Auto 500 /uL (0-900); Monocytes Percent Auto 7.7 % (3-14); Neutrophils Absolute Auto 3700 /uL (1500-7000); Neutrophils Percent Auto 61.1 % (50-75); Platelet Count 312 X10^3/uL (150-400); Red Blood Cell Count 4.32 X10^6/uL (4.0-5.2)
[2022-11-13 11:10] LABS: Alanine Aminotransferase 22 IU/L (<35); Albumin Globulin Ratio 1.4 (1.0-2.8); Alkaline Phosphatase 74 U/L (38-126); Aspartate Aminotransferase 26 IU/L (14-36); BUN Creatinine Ratio 30.5 (6-22); Bilirubin Total 0.5 mg/dL (0.2-1.3); Blood Urea Nitrogen 18 mg/dL (7-17); Calcium 8.9 mg/dL (8.4-10.2); Carbon Dioxide 25 mmol/L (22-32); Chloride 104 mmol/L (98-107); Creatine Kinase 24 U/L (30-135); Estimated Glomerular Filt Rate > 60 mL/min (>60); Globulin 2.8 g/dL (1.7-4.1); Glucose 83 mg/dL (80-110); HEMOLYSIS < 15 (0-50); Lipase 118 U/L (23-300); Potassium 4.1 mmol/L (3.4-5.1); Sodium 135 mmol/L (137-145); Total Protein 6.8 g/dL (6.3-8.2)
[2022-11-13 11:21] LABS: Troponin I < 0.012 ng/mL (0.01-0.034)
== END 2022-11-13 12:46 | disposition home or self-care (01) ==
PROVIDERS: Emergency Provider Emergency Medicine; PCP Physician Assistant
DX: R42 Dizziness and giddiness (principal); R51.9 Headache, unspecified; Z79.82 Long term (current) use of aspirin; Z86.73 Personal history of transient ischemic attack (TIA), and cerebral infarction without residual deficits
CPT/HCPCS: 36415; 70496; 70498; 70551; 71045; 80053; 82550; 83690; 84484; 85025; 99284; Q9967